=== PATIENT | male | born 1945 | race Caucasian/White ===

== ENCOUNTER 2016-10-20 14:39 | Emergency (ER) | payer MEDICARE ==
[~2016-10-20] VITALS: Ht 182.9 cm; Wt 90.7 kg
[2016-10-20] MEDS ORDERED: TdaP Vaccine 0.5ml Syr IM ONE (15:15)
[2016-10-20] MEDS ORDERED: IBUPROFEN600 MG ORAL (15:48)
[2016-10-20] MEDS ORDERED: AUGMENTIN 500-1 EACH ORAL (15:48)
[2016-10-20 16:05] VITALS: BP 129/78
--- NOTE | 2016-10-20 22:23 | Emergency Room Report ---
History of Present Illness General Chief Complaint: Animal Bite Source: Patient, Family Member (DANIELLE RODRIGUEZ) Present Illness HPI The patient is a 70-year-old male presenting for right thumb injury which occurred today after the patient's dog it bit him. The dog is up-to-date with immunizations. The patient noticed pain and bleeding to the area. Patient washed out the wound with soap and water. Patient states he is experiencing a 6 /10 pain to the area which is described as a dull ache. Pain worse with touch. Patient denies any numbness or tingling. The patient denies any other injury or any other symptoms including nausea, vomiting, fever, chills, rash The patient is unsure of last tetanus shot (DANIELLE RODRIGUEZ) Allergies: Coded Allergies: No Known Allergies (Unverified , 10/20/16) Patient History Past Medical History: see triage record Pertinent Family History: none Reviewed Nursing Documentation: PMH: Agreed, PSxH: Agreed (DANIELLE RODRIGUEZ) Nursing Documentation-PMH Past Medical History: No History, Except For Hx Neurological Problems: Yes - alzheimers, (DANIELLE RODRIGUEZ) Review of Systems All Other Systems: negative except mentioned in HPI (DANIELLE RODRIGUEZ) Physical Exam Vital Signs Date Time Temp Pulse Resp B/P Pulse Ox O2 Delivery O2 Flow Rate FiO2 10/20/16 14:47 98.2 96 18 109/69 98 Room Air Sp02 EP Interpretation: reviewed, normal General Appearance: no apparent distress, alert, GCS 15, non-toxic Head: normocephalic, atraumatic Eyes: bilateral eye PERRL, bilateral eye normal inspection ENT: hearing grossly normal, normal pharynx, no angioedema, normal voice Musculoskeletal: back normal, gait/station normal, normal range of motion, tender - Tender to palpation over the base of the right first thumb Neurologic: alert, responsive, sensory intact Psychiatric: other - dementia Skin: no rash, other - There are several small puncture wounds of the right first proximal thumb and first web space. No active bleeding. Lymphatic: no adenopathy (DANIELLE RODRIGUEZ) Medical Decision Making PA Attestation Dr. Haines is my supervising physician. Patient management was discussed with my supervising physician (DANIELLE RODRIGUEZ) Medicare Attestation The history of Eladio Brar has been reviewed and management options for him have been examined and discussed by Nura Haines. I have personally examined and interviewed the patient. (NURA HAINES M.D.) Diagnostic Impression: Primary Impression: Dog bite ER Course The patient is a 70-year-old male presenting for right thumb injury which occurred today after the patient's dog it bit him Ddx considered include but not limited to puncture wound, wound infection, fracture, tendon/ligament injury, avulsion, nerve damage PE: vitals WNL. NAD There are several small puncture wounds of the right first proximal thumb and first web space. No active bleeding. Full AROM. SILT. No edema. The patient is given a tetanus shot Wound is copiously irrigated with normal saline and Betadine. The patient is discharged home with a prescription for Augmentin and will followup with PMD. ER precautions are given (DANIELLE RODRIGUEZ) Last Vital Signs Date Time Temp Pulse Resp B/P Pulse Ox O2 Delivery O2 Flow Rate FiO2 10/20/16 16:05 54 18 129/78 98 Room Air 10/20/16 16:05 98.6 Status: improved (DANIELLE RODRIGUEZ) Disposition: HOME, SELF-CARE Condition: Improved Scripts Amoxicillin/Potassium Clav 500-125 Tablet* (AUGMENTIN 500-125 TABLET*) 1 Each Tablet 1 TAB ORAL THREE TIMES A DAY, #15 TAB Prov: DANIELLE RODRIGUEZ.AFred 10/20/16 Ibuprofen* (MOTRIN*) 600 Mg Tablet 600 MG ORAL Q8H Y for For Pain, #30 TAB 0 Refills Prov: DANIELLE RODRIGUEZ P.A. 10/20/16 Referrals: NON PHYSICIAN (PCP) Patient Instructions: Animal Bite Additional Instructions: I discussed my findings with the patient. All questions and concerns have been answered. Treatment and medication compliance have been addressed. I advised the patient that they need to follow up with PMD in 3-5 days. Return to ED if pain remains or worsens, numbness or tingling occurs, new rash is noticed, fever is noticed, or if needed for any reason. Patient verbalized understanding of discharge instructions. DANIELLE RODRIGUEZ 20, 2017 22:23 NURA HAINES M.D. Oct 23, 2016 06:32
== END 2016-10-20 16:05 | disposition home or self-care (01) ==
LOC: EMR 15:22
DX: S61.051A Open bite of right thumb without damage to nail, initial encounter (principal); W54.0XXA Bitten by dog, initial encounter; Y93.9 Activity, unspecified; Y92.9 Unspecified place or not applicable; Z23 Encounter for immunization; G30.9 Alzheimer's disease, unspecified; F02.80 Dementia in other diseases classified elsewhere, unspecified severity, without behavioral disturbance, psychotic disturbance, mood disturbance, and anxiety
CPT/HCPCS: 90471; 90715; 99284

== ENCOUNTER 2017-08-15 17:33 | Inpatient (IN) | payer MEDICARE ==
[~2017-08-15] VITALS: Ht 182.9 cm; Wt 88.5 kg
[~2017-08-15 17:33] MED LIST: AUGMENTIN 500-1 EACH ORAL; IBUPROFEN600 MG ORAL
--- NOTE | 2017-08-15 17:47 | Emergency Room Report ---
History of Present Illness General Chief Complaint: Fever Source: Medical Record, EMS Present Illness HPI 71-year-old male, history of dementia, presenting with fever. Patient is poor historian and has dementia, EMS states that patient is a [id number], was found to be febrile today. His normal mental status is reportedly oriented to person only. Patient is also wanderer. Currently he is awake, oriented to person, not providing any history. Denies any pain. No other history able to be obtained Allergies: Coded Allergies: No Known Allergies (Unverified , 10/20/16) Patient History Past Medical History: see triage record Past Surgical History: none Pertinent Family History: none Reviewed Nursing Documentation: PMH: Agreed, PSxH: Agreed Nursing Documentation-PMH Hx Neurological Problems: Yes - alzheimers, Review of Systems All Other Systems: limited - dementia Physical Exam Vital Signs Date Time Temp Pulse Resp B/P (MAP) Pulse Ox O2 Delivery O2 Flow Rate FiO2 08/15/17 17:16 97.9 108 16 111/69 98 Room Air Sp02 EP Interpretation: reviewed, normal General Appearance: other - confused, but nad, Chronically Ill Head: normocephalic, atraumatic Eyes: bilateral eye normal inspection, bilateral eye PERRL, bilateral eye EOMI ENT: normal ENT inspection, normal pharynx, normal voice, moist mucus membranes Neck: normal inspection, full range of motion, supple Respiratory: normal inspection, lungs clear, normal breath sounds, no respiratory distress, no retraction, no wheezing, speaking full sentences, chest symmetrical Cardiovascular #1: normal capillary refill, tachycardia, edema Cardiovascular #2: 2+ radial (R), 2+ radial (L) Gastrointestinal: normal inspection, non tender, soft, non-distended, no guarding Genitourinary: no CVA tenderness Musculoskeletal: normal inspection, back normal, normal range of motion, non- tender Neurologic: alert, responsive, motor strength/tone normal, sensory intact, speech normal, other - +aox1 only Skin: normal inspection, normal color, no rash, warm/dry, well hydrated, normal turgor Procedures Critical Care Time Critical Care Time 40 minutes of CC time 71-year-old male, fever, sepsis VS: Tachycardic, febrile Airway patent. Not hypoxic. PLAN: IV access, labs, lactate, troponin, Blood/Urine Cx, Abx, IVF Anticipate admission to Tele vs. [facility] CC time also includes review of labs, review of EMR, discussion with family and paperwork from SNF, d/w hospitalist CC could include dosing of pressors, additional Abx CC time does not include procedures Medical Decision Making Diagnostic Impression: Primary Impression: Lobar pneumonia Additional Impressions: Sepsis Hyponatremia ER Course 71-year-old male, dementia, presenting with fever DDX: UTI, PNA, bacteremia, will also consider intra-abdominal pathology such as colitis / diverticulitis / acalculous cholecystitis if no other course found but at this time abdomen soft, NT, ND. Plan: Obtain labs including cbc, bmp, blood culture, blood gas, lactate, ua, ucx CXR EKG ER course: Patient's BP has remained stable with MAP > 65 Given Tylenol [place] for fever Remains altered, came to see patient and states that this is his baseline White count 25 Lobar pneumonia noted Treated with vanco and cefepime Sepsis Re-examination Time: 7 PM VS: Temp 98 HR 101 BP 117/66 RR 18 CVS: RRR Respiratory: Lungs clear bilaterally Peripheral pulses: 2+ radial Capillary refill: <2 seconds Skin exam: warm, dry, no rash, not mottled Disposition: Patient will admitted to tele Patient requires close monitoring of respiratory/hemodynamic status and continuation of IV antibiotics. D/W Hospitalist Dr Bernabe who has accepted pt for admission Please note that this Emergency Department Report was dictated using [employer] software, occasionally this can lead to erroneous entry secondary to interpretation by the dictation equipment. EKG Diagnostic Results EP Interpretation: Yes Rate: tachy Rhythm: NSR ST Segments: No acute changes ASA given to patient: No Rhythm Strip EP Interpretation: Yes Rate: 100 Rhythm: NSR, no PVCs, no ectopy Chest X-ray CXR: Ordered: Yes 1 view Indication: Chest pain EP interpretation: Yes Interpretation: L lobar PNA Impression: L LOBAR PNA Electronically signed by Frank Munroe MD Laboratory Tests Test 08/15/17 18:10 08/15/17 19:17 White Blood Count 25.6 K/UL (4.8-10.8) *H Red Blood Count 4.23 M/UL (4.70-6.10) L Hemoglobin 12.6 G/DL (14.2-18.0) L Hematocrit 39.9 % (42.0-52.0) L Mean Corpuscular Volume 94 FL (80-99) Mean Corpuscular Hemoglobin 29.8 PG (27.0-31.0) Mean Corpuscular Hemoglobin Concent 31.7 G/DL (32.0-36.0) L Red Cell Distribution Width 12.7 % (11.6-14.8) Platelet Count 280 K/UL (150-450) Mean Platelet Volume 7.8 FL (6.5-10.1) Neutrophils (%) (Auto) % (45.0-75.0) Lymphocytes (%) (Auto) % (20.0-45.0) Monocytes (%) (Auto) % (1.0-10.0) Eosinophils (%) (Auto) % (0.0-3.0) Basophils (%) (Auto) % (0.0-2.0) Neutrophils % (Manual) Pending Lymphocytes % (Manual) Pending Platelet Estimate Pending Platelet Morphology Pending Sodium Level 129 MMOL/L (136-145) L Potassium Level 4.0 MMOL/L (3.5-5.1) Chloride Level 93 MMOL/L (98-107) L Carbon Dioxide Level 27 MMOL/L (21-32) Anion Gap 10 mmol/L (5-15) Blood Urea Nitrogen 23 mg/dL (7-18) H Creatinine 1.1 MG/DL (0.55-1.30) Estimate Glomerular Filtration Rate mL/min (>60) Glucose Level 126 MG/DL (74-106) H Lactic Acid Level 2.20 mmol/L (0.66-2.22) Calcium Level 9.3 MG/DL (8.5-10.1) Total Bilirubin 1.3 MG/DL (0.2-1.0) H Direct Bilirubin 0.5 MG/DL (0.0-0.3) H Aspartate Amino Transferase (AST) 16 U/L (15-37) Alanine Aminotransferase (ALT) 17 U/L (12-78) Alkaline Phosphatase 104 U/L (46-116) Troponin I 0.000 ng/mL (0.000-0.056) Pro-B-Type Natriuretic Peptide 627 pg/mL (0-125) H Total Protein 7.7 G/DL (6.4-8.2) Albumin 2.9 G/DL (3.4-5.0) L Globulin 4.8 g/dL Albumin/Globulin Ratio 0.6 (1.0-2.7) L Urine Color [place] Urine Appearance Clear Urine pH 6 (4.5-8.0) Urine Specific [place] 1.010 (1.005-1.035) Urine Protein 3+ (NEGATIVE) H Urine Glucose (UA) Negative (NEGATIVE) Urine Ketones Negative (NEGATIVE) Urine Occult Blood 3+ (NEGATIVE) H Urine Nitrite Negative (NEGATIVE) Urine Bilirubin 1+ (NEGATIVE) H Urine Ictotest Negative Urine Urobilinogen 12 MG/DL (0.0-1.0) H Urine Leukocyte Esterase 1+ (NEGATIVE) H Urine RBC 2-4 /HPF (0 - 0) H Urine WBC 0-2 /HPF (0 - 0) Urine Squamous Epithelial Cells None /LPF (NONE/OCC) Urine Bacteria Moderate /HPF (NONE) H Last Vital Signs Date Time Temp Pulse Resp B/P (MAP) Pulse Ox O2 Delivery O2 Flow Rate FiO2 08/15/17 17:16 97.9 108 16 111/69 98 Room Air Disposition: ADMITTED INPATIENT Condition: Serious Frank Munroe M.D. Aug 15, 2017 17:47
[2017-08-15 18:00] VITALS: BP 117/66
[2017-08-15] MEDS ORDERED: Acetaminophen 650 MG SUPP RECTAL ONE (18:30)
[2017-08-15 18:44] LABS: HEMATOCRIT 39.9 % (42.0-52.0); HEMOGLOBIN 12.6 G/DL (14.2-18.0); MEAN CORPUSCULAR VOLUME 94 FL (80-99); PLATELET COUNT 280 K/UL (150-450); RED BLOOD COUNT 4.23 M/UL (4.70-6.10); RED CELL DISTRIBUTION WIDTH 12.7 % (11.6-14.8)
[2017-08-15 18:47] LABS: WHITE BLOOD COUNT 25.6 K/UL (4.8-10.8)
[2017-08-15] MEDS ORDERED: Vancomycin 1.5gm/D5W 250ml 250 ML IVPB ONE (19:00)
[2017-08-15] MEDS ORDERED: Cefepime HCl 1 GM in NS 55 ML IV ONE (19:00)
[2017-08-15 19:02] LABS: ANION GAP 10 mmol/L (5-15); BLOOD UREA NITROGEN 23 mg/dL (7-18); CALCIUM 9.3 MG/DL (8.5-10.1); CARBON DIOXIDE 27 MMOL/L (21-32); CHLORIDE 93 MMOL/L (98-107); CREATININE 1.1 MG/DL (0.55-1.30); SODIUM 129 MMOL/L (136-145)
[2017-08-15] MEDS ORDERED: Cefepime 1gm vial ONE (19:07)
[2017-08-15 19:15] LABS: ALANINE AMINOTRANSFERASE 17 U/L (12-78); ALBUMIN 2.9 G/DL (3.4-5.0); ALBUMIN/GLOBULIN RATIO 0.6 (1.0-2.7); ALKALINE PHOSPHATASE 104 U/L (46-116); ASPARTATE AMINO TRANSFERASE 16 U/L (15-37); BILIRUBIN,TOTAL 1.3 MG/DL (0.2-1.0)
[2017-08-15 19:17] LABS: BILIRUBIN,DIRECT 0.5 MG/DL (0.0-0.3)
[2017-08-15 19:49] LABS: APPEARANCE,URINE CLEAR; BILIRUBIN, URINE 1+ (NEGATIVE); GLUCOSE, URINE (UA) NEGATIVE (NEGATIVE); KETONES,URINE NEGATIVE (NEGATIVE); LEUKOCYTE ESTERASE ,URINE 1+ (NEGATIVE); NITRITE,URINE NEGATIVE (NEGATIVE); PH,URINE 6 (4.5-8.0); PROTEIN,URINE 3+ (NEGATIVE); UROBILINOGEN,URINE 12 MG/DL (0.0-1.0)
[2017-08-15 19:50] LABS: COLOR,URINE AMBER
[2017-08-15 19:54] VITALS: BP 93/60
[2017-08-15 23:16] VITALS: BP 92/74
[2017-08-16] VITALS (7 sets, daily range): BP systolic 95–130; BP diastolic 53–77
[2017-08-16] MEDS ORDERED: DONEPEZIL HCL10 M2 ORAL (00:19)
[2017-08-16] MEDS ORDERED: VITAMIN B122500 MCG PO (00:19)
[2017-08-16] MEDS ORDERED: FOLIC ACID1 MG ORAL (00:19)
[2017-08-16] MEDS ORDERED: FISH OIL CAP1000 MG ORAL (00:19)
[2017-08-16] MEDS ORDERED: LEVOTHYROXINE50 MCG ORAL (00:19)
[2017-08-16] MEDS ORDERED: VITAMIN B-1100 MG ORAL (00:19)
[2017-08-16] MEDS ORDERED: RISPERDAL0.25 MG ORAL (00:19)
[2017-08-16] MEDS ORDERED: CITALOPRAM HBR20 M1 ORAL (00:19)
[2017-08-16] MEDS ORDERED: NASALCROM26 ML NS (00:19)
[2017-08-16] MEDS ORDERED: L-CARNITINE250 MG PO (00:19)
[2017-08-16] MEDS ORDERED: CRESTOR10 M2 ORAL (00:19)
[2017-08-16] MEDS ORDERED: TAMSULOSIN HCL0.4 MG ORAL (00:19)
[2017-08-16] MEDS ORDERED: COENZYME Q-10200 MG PO (00:19)
--- NOTE | 2017-08-16 03:49 | Geriatric Progress Note ---
Subjective Interval Events Developed high fever, weakness at [facility]. Seen in ED at ~19:00, 08/15/17. Noted elevated wbc, borderline lactate, low Na. No overt source, but CXR reported with probable pneumonia. Given fluid bolus, cefepime, vanco. Admitted for further evaluation and treatment. PMH: Depression, Dementia. Dictated #[id number] Geriatric Geriatric Last 24 Hour Vital Signs Date Time Temp Pulse Resp B/P (MAP) Pulse Ox O2 Delivery O2 Flow Rate FiO2 08/16/17 01:24 96 08/16/17 01:24 99.3 94 95/57 95 Room Air 08/15/17 23:16 99.1 92 24 92/74 99 Nasal Cannula 2.0 08/15/17 19:54 100 31 93/60 93 Room Air 08/15/17 19:40 100.9 08/15/17 18:00 103.8 102 18 117/66 96 Room Air 08/15/17 17:16 97.9 108 16 111/69 98 Room Air Intake and Output 08/15/17 08/16/17 19:00 07:00 Intake Total 0 ml Output Total 200 ml Balance -200 ml Intake Oral 0 ml Output Urine Total 200 ml Laboratory Tests Test 08/15/17 18:10 08/15/17 19:17 08/15/17 23:28 White Blood Count 25.6 K/UL (4.8-10.8) *H Red Blood Count 4.23 M/UL (4.70-6.10) L Hemoglobin 12.6 G/DL (14.2-18.0) L Hematocrit 39.9 % (42.0-52.0) L Mean Corpuscular Volume 94 FL (80-99) Mean Corpuscular Hemoglobin 29.8 PG (27.0-31.0) Mean Corpuscular Hemoglobin Concent 31.7 G/DL (32.0-36.0) L Red Cell Distribution Width 12.7 % (11.6-14.8) Platelet Count 280 K/UL (150-450) Mean Platelet Volume 7.8 FL (6.5-10.1) Neutrophils (%) (Auto) % (45.0-75.0) Lymphocytes (%) (Auto) % (20.0-45.0) Monocytes (%) (Auto) % (1.0-10.0) Eosinophils (%) (Auto) % (0.0-3.0) Basophils (%) (Auto) % (0.0-2.0) Differential Total Cells Counted 100 Neutrophils % (Manual) 95 % (45-75) H Lymphocytes % (Manual) 1 % (20-45) L Monocytes % (Manual) 4 % (1-10) Eosinophils % (Manual) 0 % (0-3) Basophils % (Manual) 0 % (0-2) Band Neutrophils 0 % (0-8) Platelet Estimate Adequate Platelet Morphology Normal Red Blood Cell Morphology Normal Sodium Level 129 MMOL/L (136-145) L Potassium Level 4.0 MMOL/L (3.5-5.1) Chloride Level 93 MMOL/L (98-107) L Carbon Dioxide Level 27 MMOL/L (21-32) Anion Gap 10 mmol/L (5-15) Blood Urea Nitrogen 23 mg/dL (7-18) H Creatinine 1.1 MG/DL (0.55-1.30) Estimat Glomerular Filtration Rate mL/min (>60) Glucose Level 126 MG/DL (74-106) H Lactic Acid Level 2.20 mmol/L (0.66-2.22) 0.80 mmol/L (0.66-2.22) Calcium Level 9.3 MG/DL (8.5-10.1) Total Bilirubin 1.3 MG/DL (0.2-1.0) H Direct Bilirubin 0.5 MG/DL (0.0-0.3) H Aspartate Amino Transf (AST/SGOT) 16 U/L (15-37) Alanine Aminotransferase (ALT/SGPT) 17 U/L (12-78) Alkaline Phosphatase 104 U/L (46-116) Troponin I 0.000 ng/mL (0.000-0.056) Pro-B-Type Natriuretic Peptide 627 pg/mL (0-125) H Total Protein 7.7 G/DL (6.4-8.2) Albumin 2.9 G/DL (3.4-5.0) L Globulin 4.8 g/dL Albumin/Globulin Ratio 0.6 (1.0-2.7) L Urine Color Kayley Urine Appearance Clear Urine pH 6 (4.5-8.0) Urine Specific [place] 1.010 (1.005-1.035) Urine Protein 3+ (NEGATIVE) H Urine Glucose (UA) Negative (NEGATIVE) Urine Ketones Negative (NEGATIVE) Urine Occult Blood 3+ (NEGATIVE) H Urine Nitrite Negative (NEGATIVE) Urine Bilirubin 1+ (NEGATIVE) H Urine Ictotest Negative Urine Urobilinogen 12 MG/DL (0.0-1.0) H Urine Leukocyte Esterase 1+ (NEGATIVE) H Urine RBC 2-4 /HPF (0 - 0) H Urine WBC 0-2 /HPF (0 - 0) Urine Squamous Epithelial Cells None /LPF (NONE/OCC) Urine Bacteria Moderate /HPF (NONE) H Current Medications Medications (Trade) Dose Ordered Sig/Enoc Route PRN Reason Start Time Stop Time Status Last Admin Dose Admin Acetaminophen (Tylenol) 650 mg Q6H PRN ORAL Mild Pain/Temp > 100.5 08/16/17 02:00 09/15/17 01:59 Albuterol/ Ipratropium (Albuterol/ Ipratropium) 3 ml QIDRT HHN 08/16/17 07:00 08/21/17 06:59 Cefepime HCl 2 gm/ Dextrose 55 ml @ 110 mls/hr Q8HR IVPB 08/16/17 06:00 08/23/17 05:59 Citalopram Hydrobromide (celeXA) 20 mg DAILY ORAL 08/16/17 09:00 09/15/17 08:59 Levothyroxine Sodium (Synthroid) 50 mcg DAILY@0630 ORAL 08/16/17 06:30 09/15/17 06:29 Risperidone (RisperDAL) 0.25 mg BID ORAL 08/16/17 09:00 09/15/17 08:59 Sodium Chloride 1,000 ml @ 75 mls/hr [id number] IV 08/16/17 02:00 09/15/17 01:59 Tamsulosin HCl (Flomax) 0.4 mg BEDTIME ORAL 08/16/17 21:00 09/15/17 20:59 Vancomycin HCl (Vanco rx to dose) 1 ea DAILY PRN MISC Per rx protocol 08/16/17 02:00 09/15/17 01:59 Vancomycin HCl/ Dextrose 250 ml @ 166.667 mls/hr Q12H IVPB 08/16/17 10:00 1/19/18 09:59 Height (Feet): 6 Height (Inches): 0.00 Weight (Pounds): 195 MARRY CASH Aug 16, 2017 03:49
[2017-08-16] MEDS ORDERED: Cefepime 2gm ONE (05:18)
[2017-08-16] MEDS: Cefepime HCl 2 GM in D5W 55 ML IVPB SCH ×3 (06:05→21:29)
[2017-08-16] MEDS: Albuterol/Ipratropium 3ml neb HHN SCH ×4 (07:32→19:13)
[2017-08-16 08:33] LABS: HEMATOCRIT 31.8 % (42.0-52.0); HEMOGLOBIN 11.5 G/DL (14.2-18.0); MEAN CORPUSCULAR VOLUME 92 FL (80-99); PLATELET COUNT 271 K/UL (150-450); RED BLOOD COUNT 3.45 M/UL (4.70-6.10); RED CELL DISTRIBUTION WIDTH 12.6 % (11.6-14.8)
[2017-08-16 08:39] LABS: WHITE BLOOD COUNT 25.7 K/UL (4.8-10.8)
[2017-08-16 08:55] LABS: ANION GAP 9 mmol/L (5-15); BLOOD UREA NITROGEN 17 mg/dL (7-18); CALCIUM 8.4 MG/DL (8.5-10.1); CARBON DIOXIDE 23 MMOL/L (21-32); CHLORIDE 99 MMOL/L (98-107); CREATINE KINASE 46 U/L (26-308); CREATININE 0.9 MG/DL (0.55-1.30); POTASSIUM 3.8 MMOL/L (3.5-5.1); SODIUM 131 MMOL/L (136-145)
[2017-08-16] MEDS: Citalopram Hydrobromide 10mg Tab ORAL SCH (09:03)
[2017-08-16] MEDS: Vancomycin 1250mg/D5W 250ml IVPB SCH ×2 (09:49→22:25)
--- NOTE | 2017-08-16 10:35 | Diagnostic Imaging Report ---
Indication: Pain. Fever Technique: XRAY Chest 1v Comparison: None Findings: Heart size and mediastinal contours are within normal limits given technique. There is opacity in the right mid/upper lung suggestion of air bronchograms. There is no pleural effusion. No pneumothorax. Left lung is clear. No acute osseous abnormality seen Impression: Focal opacity in the right midlung most likely representing a pneumonia given history of fever. Radiographic follow-up to resolution recommended. Finding of pneumonia corresponds with the preliminary interpretation of the treating ER clinician as documented in the electronic medical record. Study was obtained via the emergency department however patient admitted to the hospital at time of dictation of the final report.
[2017-08-16] MEDS ORDERED: Tubing IV Secondary IV ONE (16:01)
[2017-08-16] MEDS ORDERED: NS 500ML ONE (16:01)
--- NOTE | 2017-08-16 19:38 | Geriatric Progress Note ---
Assessment/Plan Problems: (1) Semantic dementia with behavioral disturbance (2) Delirium due to another medical condition, acute, mixed level of activity (3) Dyslipidemia (4) Prostatism (5) Lobar pneumonia (6) Hyponatremia (7) Sepsis (8) Altered mental status Assessment/Plan Generally improved. Hopefully wbc will begin to respond to antibiotics, hydration, bronchodilators. Lack of distress would make CPT not currently indicated. Will dry adding Rozerem to diminish delirium. Make Risperdal available but minimize. Discussed both outgoing and incoming shifts. Mobilize during day as tolerated. Discussed with: family, hospital staff Subjective Interval Events Patient more alert. Remains non-verbal which is consistent with his baseline recently. Does not appear in distress. Has occasional brief cough, non- productive. No obviously congested. Wbc remains about the same. CXR reviewed, obvious dense lobar infiltrate, RUL. No fever. At times has wandered, but staff has been been able to redirect without giving the additional dose of Risperdal ordered. A sitter has also been requested. Discussed with by phone in detail. Based on his AHCD and her interpretation, patient will be DNR/DNI, but will receive conservative active tx. She plans to move him to a different [facility], where she can also live on the grounds, and hopefully allow some quality of life in the future. Staff reports patient ate, but is requiring a feeder, and did not exhibit any signs of dysphagia. Subjective Patient aphasic due to semantic dementia. Geriatric Geriatric Last 24 Hour Vital Signs Date Time Temp Pulse Resp B/P (MAP) Pulse Ox O2 Delivery O2 Flow Rate FiO2 08/16/17 16:00 97.3 94 20 130/77 92 Room Air 08/16/17 16:00 95 08/16/17 15:07 92 18 96 Room Air 08/16/17 14:57 92 18 96 Room Air 08/16/17 12:00 93 08/16/17 11:24 97.9 87 20 101/53 100 Room Air 08/16/17 11:17 84 20 98 Room Air 08/16/17 11:07 84 18 92 Room Air 08/16/17 09:18 08/16/17 08:00 84 08/16/17 08:00 98.7 87 20 105/57 92 Room Air 08/16/17 07:42 86 18 96 Room Air 08/16/17 07:32 85 18 91 Room Air 08/16/17 07:31 85 18 Room Air 08/16/17 07:14 98.7 08/16/17 06:12 101.7 93 24 113/66 95 Room Air 08/16/17 04:00 90 08/16/17 01:24 96 08/16/17 01:24 99.3 94 95/57 95 Room Air 08/16/17 01:00 99.1 92 24 92/74 99 Nasal Cannula 2.0 08/15/17 23:16 99.1 92 24 92/74 99 Nasal Cannula 2.0 08/15/17 19:54 100 31 93/60 93 Room Air 08/15/17 19:40 100.9 Intake and Output 08/15/17 08/16/17 19:00 07:00 Intake Total 250 ml Output Total 200 ml Balance 50 ml Intake Oral 250 ml Output Urine Total 200 ml # Voids 2 Laboratory Tests Test 08/15/17 19:17 08/15/17 23:28 08/16/17 07:00 Urine Color Kayley Urine Appearance Clear Urine pH 6 (4.5-8.0) Urine Specific [place] 1.010 (1.005-1.035) Urine Protein 3+ (NEGATIVE) H Urine Glucose (UA) Negative (NEGATIVE) Urine Ketones Negative (NEGATIVE) Urine Occult Blood 3+ (NEGATIVE) H Urine Nitrite Negative (NEGATIVE) Urine Bilirubin 1+ (NEGATIVE) H Urine Ictotest Negative Urine Urobilinogen 12 MG/DL (0.0-1.0) H Urine Leukocyte Esterase 1+ (NEGATIVE) H Urine RBC 2-4 /HPF (0 - 0) H Urine WBC 0-2 /HPF (0 - 0) Urine Squamous Epithelial Cells None /LPF (NONE/OCC) Urine Bacteria Moderate /HPF (NONE) H Lactic Acid Level 0.80 mmol/L (0.66-2.22) White Blood Count 25.7 K/UL (4.8-10.8) *H Red Blood Count 3.45 M/UL (4.70-6.10) L Hemoglobin 11.5 G/DL (14.2-18.0) L Hematocrit 31.8 % (42.0-52.0) L Mean Corpuscular Volume 92 FL (80-99) Mean Corpuscular Hemoglobin 33.2 PG (27.0-31.0) H Mean Corpuscular Hemoglobin Concent 36.1 G/DL (32.0-36.0) H Red Cell Distribution Width 12.6 % (11.6-14.8) Platelet Count 271 K/UL (150-450) Mean Platelet Volume 7.9 FL (6.5-10.1) Neutrophils (%) (Auto) % (45.0-75.0) Lymphocytes (%) (Auto) % (20.0-45.0) Monocytes (%) (Auto) % (1.0-10.0) Eosinophils (%) (Auto) % (0.0-3.0) Basophils (%) (Auto) % (0.0-2.0) Differential Total Cells Counted 100 Neutrophils % (Manual) 87 % (45-75) H Lymphocytes % (Manual) 2 % (20-45) L Monocytes % (Manual) 6 % (1-10) Eosinophils % (Manual) 0 % (0-3) Basophils % (Manual) 0 % (0-2) Band Neutrophils 5 % (0-8) Platelet Estimate Adequate Platelet Morphology Normal Red Blood Cell Morphology Normal Erythrocyte Sedimentation Rate 97 MM/HR (0-20) H Sodium Level 131 MMOL/L (136-145) L Potassium Level 3.8 MMOL/L (3.5-5.1) Chloride Level 99 MMOL/L (98-107) Carbon Dioxide Level 23 MMOL/L (21-32) Anion Gap 9 mmol/L (5-15) Blood Urea Nitrogen 17 mg/dL (7-18) Creatinine 0.9 MG/DL (0.55-1.30) Estimat Glomerular Filtration Rate mL/min (>60) Glucose Level 109 MG/DL (74-106) H Calcium Level 8.4 MG/DL (8.5-10.1) L Total Creatine Kinase 46 U/L (26-308) Current Medications Medications (Trade) Dose Ordered Sig/Enoc Route PRN Reason Start Time Stop Time Status Last Admin Dose Admin Acetaminophen (Tylenol) 650 mg Q6H PRN ORAL Mild Pain/Temp > 100.5 08/16/17 02:00 09/15/17 01:59 08/16/17 06:15 Albuterol/ Ipratropium (Albuterol/ Ipratropium) 3 ml QIDRT HHN 08/16/17 07:00 08/21/17 06:59 08/16/17 14:57 Cefepime HCl 2 gm/ Dextrose 55 ml @ 110 mls/hr Q8HR IVPB 08/16/17 06:00 08/23/17 05:59 08/16/17 14:39 Citalopram Hydrobromide (celeXA) 20 mg DAILY ORAL 08/16/17 09:00 09/15/17 08:59 08/16/17 09:03 Levothyroxine Sodium (Synthroid) 50 mcg DAILY@0630 ORAL 08/16/17 06:30 09/15/17 06:29 08/16/17 06:05 Risperidone (RisperDAL) 0.25 mg BID ORAL 08/16/17 09:00 09/15/17 08:59 08/16/17 17:18 Sodium Chloride 1,000 ml @ 75 mls/hr [id number] IV 08/16/17 02:00 09/15/17 01:59 08/16/17 14:39 Tamsulosin HCl (Flomax) 0.4 mg BEDTIME ORAL 08/16/17 21:00 09/15/17 20:59 Vancomycin HCl (Vanco rx to dose) 1 ea DAILY PRN MISC Per rx protocol 08/16/17 02:00 09/15/17 01:59 Vancomycin HCl/ Dextrose 250 ml @ 166.667 mls/hr Q12H IVPB 08/16/17 10:00 08/21/17 09:59 08/16/17 09:49 Height (Feet): 6 Height (Inches): 0.00 Weight (Pounds): 195 General Appearance: alert Head: normocephalic, atraumatic Eyes: bilateral anicteric Neck: full range of motion, no mass Respiratory: rales - some anterior RU lung field Cardiovascular: regular rate, rhythm Gastrointestinal: normal bowel sounds, non tender, soft, no mass, no organomegaly, non-distended Musculoskeletal: no calf tenderness Edema: no edema noted Generalized Neurologic: no new focality MARRY CASH Aug 16, 2017 19:37
[2017-08-16] MEDS: Ramelteon 8mg tab (Approved for Delirium use only) ORAL SCH (21:27)
[2017-08-16] MEDS: Tamsulosin 0.4mg cap ORAL SCH (21:28)
[2017-08-17] VITALS: BP 102/57
[2017-08-17 04:09] VITALS: BP 97/60
[2017-08-17] MEDS: Cefepime HCl 2 GM in D5W 55 ML IVPB SCH ×2 (06:02→14:01)
[2017-08-17] MEDS: Albuterol/Ipratropium 3ml neb HHN SCH ×4 (07:43→19:49)
[2017-08-17 08:00] VITALS: BP 102/61
--- NOTE | 2017-08-17 08:00 | History and Physical Report ---
DATE OF ADMISSION: 08/15/2017 IDENTIFICATION DATA: The patient is a 71-year-old gentleman who developed a high fever of 103 and lethargy and weakness at his [facility]. 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 He was initially seen in the office on 03/29/2015 and at that time was aphasic and had not been able to read for a period of time. He had been seen by Dr. Waqar Ceja and thought to have dementia, possibly of the Alzheimer's type. There had been a presentation of depression approximately 15 years prior, felt to be associated with work stress. He had worked on [employer] for various large organizations and was thought to have obsessive-compulsive characteristics with resulting anxiety, depression, and anger. He was treated with Abilify for approximately 10 years and retired approximately 9 years ago, after he began displaying increasing symptoms including difficulty communicating with coworker's. He also was thought to be "absent minded". Since his initial presentation in the office, the patient has had gradual, but progressive decline in his functional status almost entirely associated with his cognitive problems. Late last year, the patient began to exhibit signs of wandering and [facility] his and was later found in [place]. His is affected with multiple sclerosis and therefore had difficulty containing the patient and several months ago, he was placed in [facility]. Because of episodic agitation there and attempt to leave the facility, temporizing doses of antipsychotics were used to moderate his behavior. The patient was last seen in the office on 07/23/2017, at which time he had begun to develop symptoms of weight loss and poor sleep. At that time, he had no evidence of bradykinesia or sedation, and his Romberg remained normal. His Risperdal was increased to 0.25 mg at each bedtime and subsequently because of persistent agitation was increased to 0.5 mg twice a day. The patient's past medical history, otherwise, has only been remarkable for apparent dyslipidemia and prostatism treated with tamsulosin. At the present time, information is not available as to how the patient was tolerating his increased dose of Risperdal, but apparently, the patient's behavior had settled down somewhat at the facility. Today, apparently, the patient spiked a fever to over 103 degrees and became weak and lethargic, and his requested facility to send him to the emergency room. In the emergency room, the patient was evaluated and found to have a markedly elevated white count of over 25,000 as well as a borderline elevated lactate level and evidence of hyponatremia. It was felt the patient would require admission to the hospital for further evaluation and treatment and the patient was seen in the emergency room. At that time, the patient was aphasic and unable to respond with any verbal responses, although he smiled at the examiner at times. He did not exhibit any gross discomfort and his initial evaluation failed to reveal specific locus for his leukocytosis. Subsequently, the report of the patient's chest x-ray has suggested right upper lobe pneumonitis, and therefore, this seems to be the most likely cause of the patient's leukocytosis and high fever. The patient is admitted for further evaluation and treatment. PAST MEDICAL HISTORY: Essentially as above. CURRENT MEDICATIONS: The patient's current medications have included citalopram 20 mg daily, NasalCrom spray 3 times a day, vitamin B12 1000 mcg daily, donepezil 10 mg at bedtime, fish oil 1000 mg daily, Folate 1 mg daily, ibuprofen 600 mg q.8 h. p.r.n., L-carnitine 250 mg daily, levothyroxine 50 mcg daily, Risperdal 0.5 mg b.i.d., Crestor 5 mg at bedtime, tamsulosin 0.4 mg at bedtime, thiamine 100 mg daily and Coenzyme Q10 100 mg daily. There is also a question whether the patient may be taking amoxicillin and clavulanate, and the indication is unclear. It appears possible that both the ibuprofen and the Augmentin may actually be artifactual associated with electronic medical record from a visit more than a year ago. It appears possible that both the Augmentin and the ibuprofen are actually artifactual associated with electronic health record and may represent an emergency room visit for a dog bite over 9 months ago. ALLERGIES: No known allergies. SOCIAL HISTORY: As described above. The patient had previously worked in [employer] on [address]. He is to his , who is limited functionally by her multiple sclerosis and he recently moved into the [facility] because of his cognitive behavioral changes. FAMILY HISTORY: Noncontributory. REVIEW OF SYSTEMS: The patient is unable to respond at the present time. PHYSICAL EXAMINATION: VITAL SIGNS: The patient's initial vital signs include a blood pressure of 117/66, heart rate of 102 and regular, respiratory rate of 18, temperature of 103.8 rectally, and room air saturation of 96%. GENERAL: The patient is a well-developed male, lying in bed with a somewhat inappropriate smile, not exhibiting any acute distress, at times keeping his eyes closed with no clear indication of respiratory difficulty. No audible congestion and no cough. HEAD AND NECK: Normocephalic, atraumatic skull. The sclerae appear anicteric. The neck reveals normal range of motion without obvious masses. CARDIAC: Regular rhythm. The breath sounds are unremarkable to auscultation. ABDOMEN: Normal bowel sounds. Soft and nontender without masses or organomegaly. No suprapubic tenderness is elicited. EXTREMITIES: No edema. No calf tenderness. Grossly, the patient move all extremities actively attempts at range of motion are frustrated by his inability to comply, but there is no clear indication of new focality. Given the patient's fever and acute process, an attempt was not made to ambulate the patient in the emergency room. LABORATORY DATA: The patient's white count is 25.6 with hematocrit of 39.9% MCV of 94, platelet count 280 with 95% neutrophils. Sodium is 129, potassium 4.0, chloride 93, bicarbonate 27, BUN 23, creatinine 1.1, glucose 126, and calcium 9.3. Total bilirubin 1.3, direct bilirubin 0.5, AST 16, ALT 17, and alkaline phosphatase 107. Troponin is 0. ProBNP is 627. Albumin 2.9. Total protein 7.7. Initial urinalysis revealed specific gravity 1.010, 3+ protein, 3+ ketones, 1+ bilirubin, negative nitrites, 1+ leukocyte esterase, urobilinogen of 12, 2 to 4 RBCs, 0 to 2 WBCs, and mild bacteria. As stated above, the x-ray imaging was not immediately available, but subsequently the report reveals focal opacity in the right mid lung, most likely representing a pneumonia given history of fever. Radiologic followup recommended. The actual images have not been reviewed yet personally. IMPRESSION: The patient presents with a febrile episode and increase with weakness and lethargy as well as mild electrolyte abnormalities and borderline lactate, which are suggestive of a sepsis presentation associated with pneumonitis. The fact that the patient's physical examination is fairly unremarkable, is probably due to his overall excellent baseline condition and his inability to respond back to detailed history. Given the right upper lobe appearance of the x-rays, the possibility of aspiration pneumonia needs to considered as well, especially if the patient has been overly sedated on his psychoactive medications. This is not clear at the present time. For the time being, the patient will be continued on cefepime and vancomycin. He was initiated in the emergency room with antibiotic coverage. He has already, received 2 liters of fluids in the emergency room and additional fluid will be continued at the present time to improve his fluid resuscitation and correct his electrolyte abnormalities. Because of the possible oversedation, the patient's Risperdal dosing will be decreased to 0.25 mg twice a day and further titration will be depending on his response to therapy. Longer term, given the patient's overall cognitive presentation, he would probably benefit most from a limited access placement rather than high doses of psychoactive medications since he has been ambulatory and without evidence of neurologic deficits. In maintaining his cardiovascular condition, it will be helpful in terms of his overall prognosis. The patient is a Full Code at the present time until further discussions are held with the patient's . Additional interventions will be considered depending on the patient's initial response to therapy and further laboratory data. Bronchodilator therapy will also be utilized since the patient may require some assistance in mobilizing his secretions in order to clear the affected lung. The patient will be initially started on a mechanical soft diet since there is no clear indication at the present time of actual dysphagia, but obviously this will be titrated as well depending on the patient's ability to tolerate his diet. Vijay Bernabe M.D. DR: ALFRED JOB#: [id number] CC: SANDER
[2017-08-17 08:01] LABS: HEMATOCRIT 32.9 % (42.0-52.0); HEMOGLOBIN 11.4 G/DL (14.2-18.0); MEAN CORPUSCULAR VOLUME 93 FL (80-99); PLATELET COUNT 288 K/UL (150-450); RED BLOOD COUNT 3.55 M/UL (4.70-6.10); RED CELL DISTRIBUTION WIDTH 12.6 % (11.6-14.8)
[2017-08-17 08:05] LABS: ANION GAP 10 mmol/L (5-15); BLOOD UREA NITROGEN 14 mg/dL (7-18); CALCIUM 8.5 MG/DL (8.5-10.1); CARBON DIOXIDE 24 MMOL/L (21-32); CHLORIDE 102 MMOL/L (98-107); CREATININE 0.9 MG/DL (0.55-1.30); POTASSIUM 3.5 MMOL/L (3.5-5.1); SODIUM 136 MMOL/L (136-145)
[2017-08-17] MEDS: Citalopram Hydrobromide 10mg Tab ORAL SCH (08:16)
[2017-08-17] MEDS: Vancomycin 1250mg/D5W 250ml IVPB SCH (10:09)
[2017-08-17 12:00] VITALS: BP 102/64
[2017-08-17 16:00] VITALS: BP 97/50
--- NOTE | 2017-08-17 17:51 | Geriatric Progress Note ---
Assessment/Plan Problems: (1) Semantic dementia with behavioral disturbance (2) Delirium due to another medical condition, acute, mixed level of activity (3) Dyslipidemia (4) Prostatism (5) Lobar pneumonia (6) Hyponatremia (7) Sepsis (8) Altered mental status Assessment/Plan Appears to be improving, but with significant RUL changes and persistent leukocytosis, will ask I.D. to see. Repeat CXR. Otherwise continue present approach. Discussed with: hospital staff Subjective Interval Events Patient more alert and responsive than before. Behavior generally manageable. No overt distress. Wbc remains the same. Apparently intake variable. Subjective Patient aphasic due to semantic dementia. Geriatric Geriatric Last 24 Hour Vital Signs Date Time Temp Pulse Resp B/P (MAP) Pulse Ox O2 Delivery O2 Flow Rate FiO2 08/17/17 16:00 98.2 87 16 97/50 98 Room Air 08/17/17 15:03 88 20 97 Room Air 21 08/17/17 14:52 86 18 90 Room Air 21 08/17/17 12:00 84 08/17/17 12:00 97.9 68 18 102/64 96 Room Air 08/17/17 11:01 83 18 98 Room Air 21 08/17/17 10:50 83 20 93 Room Air 21 08/17/17 08:00 97.2 76 19 102/61 96 Room Air 08/17/17 08:00 77 08/17/17 07:45 93 Room Air 21 08/17/17 07:45 Room Air 21 08/17/17 04:09 98.7 79 20 97/60 94 Room Air 08/17/17 04:00 74 08/17/17 01:31 99.7 08/17/17 00:00 102.0 93 20 102/57 96 Room Air 08/17/17 00:00 92 08/16/17 20:00 98.1 105 20 107/64 97 Room Air 08/16/17 20:00 99 08/16/17 19:16 94 20 97 Room Air 21 08/16/17 19:14 90 20 95 Room Air 21 Intake and Output 08/16/17 08/17/17 19:00 07:00 Intake Total 100 ml 1368.334 ml Balance 100 ml 1368.334 ml Intake Oral 100 ml 220 ml IV Total 1148.334 ml # Voids 6 8 # Bowel Movements 1 Laboratory Tests Test 08/17/17 06:50 08/17/17 09:35 White Blood Count 26.0 K/UL (4.8-10.8) *H Red Blood Count 3.55 M/UL (4.70-6.10) L Hemoglobin 11.4 G/DL (14.2-18.0) L Hematocrit 32.9 % (42.0-52.0) L Mean Corpuscular Volume 93 FL (80-99) Mean Corpuscular Hemoglobin 32.2 PG (27.0-31.0) H Mean Corpuscular Hemoglobin Concent 34.7 G/DL (32.0-36.0) Red Cell Distribution Width 12.6 % (11.6-14.8) Platelet Count 288 K/UL (150-450) Mean Platelet Volume 7.5 FL (6.5-10.1) Neutrophils (%) (Auto) % (45.0-75.0) Lymphocytes (%) (Auto) % (20.0-45.0) Monocytes (%) (Auto) % (1.0-10.0) Eosinophils (%) (Auto) % (0.0-3.0) Basophils (%) (Auto) % (0.0-2.0) Differential Total Cells Counted 100 Neutrophils % (Manual) 87 % (45-75) H Lymphocytes % (Manual) 7 % (20-45) L Monocytes % (Manual) 6 % (1-10) Eosinophils % (Manual) 0 % (0-3) Basophils % (Manual) 0 % (0-2) Band Neutrophils 0 % (0-8) Platelet Estimate Adequate Platelet Morphology Normal Hypochromasia 1+ Sodium Level 136 MMOL/L (136-145) Potassium Level 3.5 MMOL/L (3.5-5.1) Chloride Level 102 MMOL/L (98-107) Carbon Dioxide Level 24 MMOL/L (21-32) Anion Gap 10 mmol/L (5-15) Blood Urea Nitrogen 14 mg/dL (7-18) Creatinine 0.9 MG/DL (0.55-1.30) Estimat Glomerular Filtration Rate mL/min (>60) Glucose Level 100 MG/DL (74-106) Calcium Level 8.5 MG/DL (8.5-10.1) Vancomycin Level Trough 9.6 ug/mL (5.0-12.0) Current Medications Medications (Trade) Dose Ordered Sig/Enoc Route PRN Reason Start Time Stop Time Status Last Admin Dose Admin Acetaminophen (Tylenol) 650 mg Q6H PRN ORAL Mild Pain/Temp > 100.5 08/16/17 02:00 09/15/17 01:59 08/17/17 00:32 Albuterol/ Ipratropium (Albuterol/ Ipratropium) 3 ml QIDRT HHN 08/16/17 07:00 08/21/17 06:59 08/17/17 14:52 Cefepime HCl 2 gm/ Dextrose 55 ml @ 110 mls/hr Q8HR IVPB 08/16/17 06:00 08/23/17 05:59 08/17/17 14:01 Citalopram Hydrobromide (celeXA) 20 mg DAILY ORAL 08/16/17 09:00 09/15/17 08:59 08/17/17 08:16 Levothyroxine Sodium (Synthroid) 50 mcg DAILY@0630 ORAL 08/16/17 06:30 09/15/17 06:29 08/17/17 06:02 Ramelteon (Rozerem) 8 mg QHS ORAL 08/16/17 21:00 09/15/17 20:59 08/16/17 21:27 Risperidone (RisperDAL) 0.25 mg Q12H PRN ORAL Agitation 08/17/17 03:00 09/16/17 02:59 Risperidone (RisperDAL) 0.25 mg Q12HR ORAL 08/16/17 21:00 09/15/17 08:59 08/17/17 08:17 Sodium Chloride 1,000 ml @ 75 mls/hr [id number] IV 08/16/17 21:30 09/15/17 21:29 08/17/17 15:48 Tamsulosin HCl (Flomax) 0.4 mg BEDTIME ORAL 08/16/17 21:00 09/15/17 20:59 08/16/17 21:28 Vancomycin HCl (Vanco rx to dose) 1 ea DAILY PRN MISC Per rx protocol 08/16/17 02:00 09/15/17 01:59 Vancomycin HCl/ Dextrose 250 ml @ 125 mls/hr Q12HR@1000,2200 IVPB 08/17/17 22:00 08/22/17 21:59 Height (Feet): 6 Height (Inches): 0.00 Weight (Pounds): 195 General Appearance: alert, non-toxic Head: normocephalic, atraumatic Eyes: bilateral anicteric Neck: full range of motion, no mass Respiratory: other - perhaps few crackles over RUL Cardiovascular: regular rate, rhythm Gastrointestinal: normal bowel sounds, non tender, soft, no mass, no organomegaly, non-distended Musculoskeletal: no calf tenderness Edema: no edema noted Generalized Neurologic: no new focality MARRY CASH Aug 17, 2017 17:51
--- NOTE | 2017-08-17 18:07 | Infectious Diseases Prog Note ---
Assessment/Plan Assessment/Plan Full consult dictated: A) 1) sepsis, fevers, leukocytosis 2) likely aspiration pna/HCAP 3) less likely CAP 4) pmh noted 5) allergies - negative P) 1) zosyn and vancomycin 2) check sputum culture, labs and chest x-ray 3) d/w Dr. Bernabe 4) thank you Subjective Allergies: Coded Allergies: No Known Allergies (Unverified , 10/20/16) Objective Vital Signs Last 24 Hour Vital Signs Date Time Temp Pulse Resp B/P (MAP) Pulse Ox O2 Delivery O2 Flow Rate FiO2 08/17/17 16:00 98.2 87 16 97/50 98 Room Air 08/17/17 15:03 88 20 97 Room Air 21 08/17/17 14:52 86 18 90 Room Air 21 08/17/17 12:00 84 08/17/17 12:00 97.9 68 18 102/64 96 Room Air 08/17/17 11:01 83 18 98 Room Air 21 08/17/17 10:50 83 20 93 Room Air 21 08/17/17 08:00 97.2 76 19 102/61 96 Room Air 08/17/17 08:00 77 08/17/17 07:45 93 Room Air 21 08/17/17 07:45 Room Air 21 08/17/17 04:09 98.7 79 20 97/60 94 Room Air 08/17/17 04:00 74 08/17/17 01:31 99.7 08/17/17 00:00 102.0 93 20 102/57 96 Room Air 08/17/17 00:00 92 08/16/17 20:00 98.1 105 20 107/64 97 Room Air 08/16/17 20:00 99 08/16/17 19:16 94 20 97 Room Air 21 08/16/17 19:14 90 20 95 Room Air 21 Height (Feet): 6 Height (Inches): 0.00 Weight (Pounds): 195 Microbiology Date/Time Source Procedure Growth Status 08/15/17 18:23 Blood Blood Culture - Preliminary NO GROWTH AFTER 24 HOURS Resulted 08/15/17 18:10 Blood Blood Culture - Preliminary NO GROWTH AFTER 24 HOURS Resulted 08/15/17 19:17 Urine,Clean Catch Urine Culture - Preliminary Mixed Gram Positive Organism Resulted Laboratory Tests Test 08/17/17 06:50 08/17/17 09:35 White Blood Count 26.0 K/UL (4.8-10.8) *H Red Blood Count 3.55 M/UL (4.70-6.10) L Hemoglobin 11.4 G/DL (14.2-18.0) L Hematocrit 32.9 % (42.0-52.0) L Mean Corpuscular Volume 93 FL (80-99) Mean Corpuscular Hemoglobin 32.2 PG (27.0-31.0) H Mean Corpuscular Hemoglobin Concent 34.7 G/DL (32.0-36.0) Red Cell Distribution Width 12.6 % (11.6-14.8) Platelet Count 288 K/UL (150-450) Mean Platelet Volume 7.5 FL (6.5-10.1) Neutrophils (%) (Auto) % (45.0-75.0) Lymphocytes (%) (Auto) % (20.0-45.0) Monocytes (%) (Auto) % (1.0-10.0) Eosinophils (%) (Auto) % (0.0-3.0) Basophils (%) (Auto) % (0.0-2.0) Differential Total Cells Counted 100 Neutrophils % (Manual) 87 % (45-75) H Lymphocytes % (Manual) 7 % (20-45) L Monocytes % (Manual) 6 % (1-10) Eosinophils % (Manual) 0 % (0-3) Basophils % (Manual) 0 % (0-2) Band Neutrophils 0 % (0-8) Platelet Estimate Adequate Platelet Morphology Normal Hypochromasia 1+ Sodium Level 136 MMOL/L (136-145) Potassium Level 3.5 MMOL/L (3.5-5.1) Chloride Level 102 MMOL/L (98-107) Carbon Dioxide Level 24 MMOL/L (21-32) Anion Gap 10 mmol/L (5-15) Blood Urea Nitrogen 14 mg/dL (7-18) Creatinine 0.9 MG/DL (0.55-1.30) Estimat Glomerular Filtration Rate mL/min (>60) Glucose Level 100 MG/DL (74-106) Calcium Level 8.5 MG/DL (8.5-10.1) Vancomycin Level Trough 9.6 ug/mL (5.0-12.0) Current Medications Medications (Trade) Dose Ordered Sig/Enoc Route PRN Reason Start Time Stop Time Status Last Admin Dose Admin Acetaminophen (Tylenol) 650 mg Q6H PRN ORAL Mild Pain/Temp > 100.5 08/16/17 02:00 09/15/17 01:59 08/17/17 00:32 Albuterol/ Ipratropium (Albuterol/ Ipratropium) 3 ml QIDRT HHN 08/16/17 07:00 08/21/17 06:59 08/17/17 14:52 Cefepime HCl 2 gm/ Dextrose 55 ml @ 110 mls/hr Q8HR IVPB 08/16/17 06:00 08/23/17 05:59 08/17/17 14:01 Citalopram Hydrobromide (celeXA) 20 mg DAILY ORAL 08/16/17 09:00 09/15/17 08:59 08/17/17 08:16 Levothyroxine Sodium (Synthroid) 50 mcg DAILY@0630 ORAL 08/16/17 06:30 09/15/17 06:29 08/17/17 06:02 Ramelteon (Rozerem) 8 mg QHS ORAL 08/16/17 21:00 09/15/17 20:59 08/16/17 21:27 Risperidone (RisperDAL) 0.25 mg Q12H PRN ORAL Agitation 08/17/17 03:00 09/16/17 02:59 Risperidone (RisperDAL) 0.25 mg Q12HR ORAL 08/16/17 21:00 09/15/17 08:59 08/17/17 08:17 Sodium Chloride 1,000 ml @ 75 mls/hr [id number] IV 08/16/17 21:30 09/15/17 21:29 08/17/17 15:48 Tamsulosin HCl (Flomax) 0.4 mg BEDTIME ORAL 08/16/17 21:00 09/15/17 20:59 08/16/17 21:28 Vancomycin HCl (Vanco rx to dose) 1 ea DAILY PRN MISC Per rx protocol 08/16/17 02:00 09/15/17 01:59 Vancomycin HCl/ Dextrose 250 ml @ 125 mls/hr Q12HR@1000,2200 IVPB 08/17/17 22:00 08/22/17 21:59 PRASANTH SCOTT Aug 17, 2017 18:07
[2017-08-17 19:30] LABS: HEMATOCRIT 32.7 % (42.0-52.0); HEMOGLOBIN 10.6 G/DL (14.2-18.0); MEAN CORPUSCULAR VOLUME 95 FL (80-99); PLATELET COUNT 303 K/UL (150-450); RED BLOOD COUNT 3.45 M/UL (4.70-6.10); RED CELL DISTRIBUTION WIDTH 12.8 % (11.6-14.8)
[2017-08-17 19:38] LABS: ANION GAP 10 mmol/L (5-15); BLOOD UREA NITROGEN 13 mg/dL (7-18); CALCIUM 7.8 MG/DL (8.5-10.1); CARBON DIOXIDE 26 MMOL/L (21-32); CHLORIDE 102 MMOL/L (98-107); CREATININE 0.8 MG/DL (0.55-1.30); POTASSIUM 3.4 MMOL/L (3.5-5.1); SODIUM 137 MMOL/L (136-145)
[2017-08-17 20:03] VITALS: BP 100/61
[2017-08-17] MEDS: Tamsulosin 0.4mg cap ORAL SCH (21:18)
[2017-08-17] MEDS: Ramelteon 8mg tab (Approved for Delirium use only) ORAL SCH (21:18)
[2017-08-17] MEDS: Vancomycin 1.5 GM/D5W 250ML IVPB SCH (21:20)
[2017-08-18] VITALS: BP 103/63
[2017-08-18 04:20] VITALS: BP 109/62
--- NOTE | 2017-08-18 04:45 | Consultation ---
DATE OF CONSULTATION: 08/17/2017 INFECTIOUS DISEASES CONSULTATION CONSULTING PHYSICIAN: Osvaldo Vela M.D. REFERRING PHYSICIAN: Vijay Bernabe M.D. REASON FOR CONSULTATION: Sepsis and pneumonia. CHIEF COMPLAINT: The patient's chief complaint coming into the hospital is fevers and altered mental status. HISTORY OF PRESENT ILLNESS: This is a 71-year-old male, who has history of mental problems. The patient was admitted to [facility] with altered mental status and fevers. Temperature was as high as 103.8 degrees. The patient has SIRS criteria with elevated white count as high as 25.6. The patient's chest x-ray showed right upper lobe pneumonia. A right mid lung actually with pneumonia. Infectious Disease consultation is requested. The patient is at risk for aspiration pneumonia and also community acquired pneumonia. The patient was placed on vancomycin and Zosyn. Sputum culture has been ordered. Blood cultures are negative. Today, I have also ordered influenza screen. Urinalysis was fairly unremarkable, 0 to 2 white blood cells. Urine culture is mixed organisms. Case was discussed with Dr. Bernabe. MAR was noted. Orders were noted. Notes were reviewed. REVIEW OF SYSTEMS: CONSTITUTIONAL: The patient has no Gordon. No central line. He is a poor historian, but he is responsive. He came with fevers. No chills at this time. No mention of weight loss or night sweats. HEAD AND NECK: No head pain, neck pain, or neck stiffness. CARDIAC: No chest pain or palpitations. Not on pressors. GASTROINTESTINAL: No nausea, vomiting, or diarrhea. GENITOURINARY: No dysuria or frequency. No Gordon. PULMONARY: He has maybe mild cough and congestion, but no severe hemoptysis or secretions. SKIN: No rash or itching. EXTREMITIES: No extremity pain. NEUROLOGIC: No obvious seizures. PAST MEDICAL HISTORY: Includes the following. The patient has a past medical history of Alzheimer's type dementia. The patient also has history of depression. The patient has history of dyslipidemia, history of prostatism. History of hypothyroidism. No history of malignancy, diabetes, or hypertension mentioned. MEDICATIONS: Outside medications were noted and reconciled. Currently in the inpatient setting he is on vancomycin and put him on Zosyn. We stopped the cefepime. He is on Risperdal, Flomax. He is on ramelteon, Risperdal, tamsulosin. He is on Celexa, albuterol, levothyroxine, vancomycin, Zosyn, and acetaminophen. ALLERGIES: No known drug allergies. No antibiotic allergies. SOCIAL HISTORY: Negative for smoking, alcohol, or drug abuse. FAMILY HISTORY: None. No mention of exposure to tuberculosis or cancer. PHYSICAL EXAMINATION: VITAL SIGNS: Temperature is 98.2 degrees, pulse rate 87, respiratory rate 16, blood pressure 97/50, saturation is 98%. On admission, pulse rate is 108 and temperature is 103.8 degrees. Respiratory rate is also elevated at 31. GENERAL: Alert, responsive, in no acute distress. HEAD AND NECK: Oral exam, no thrush. Eye exam, no icterus. Normocephalic. No facial droop. No neck stiffness. Neck is supple. LUNGS: Fairly clear bilaterally. Possible rales at the right. HEART: Regular. No gallop or murmur. ABDOMEN: Soft. Positive bowel sounds. Nontender. SKIN: No rash. MUSCULOSKELETAL: No effusion or contractures. Legs without cellulitis. PERIPHERAL VASCULAR: No cyanosis or gangrene. GENITOURINARY: No Gordon. Line sites are without phlebitis. No CVA tenderness. NEUROLOGIC: Intact. Nonfocal. LABORATORY AND DIAGNOSTIC DATA: Laboratory data is as follows: Creatinine is 0.9. White count is 26.3, hemoglobin 11.4. White count has been as high as 26, hemoglobin 11.4, creatinine 0.9. Sputum culture is pending. UA had 0 to 2 white blood cells. Urine culture is negative. Blood culture is negative today. Chest x-ray was noted and reviewed. He has a right middle lobe infiltrate, this is also reviewed with Dr. Bernabe and likely has pneumonia in the right middle lung or infiltrate. Sputum culture has been ordered and is pending now. ASSESSMENT AND PLAN: 1. The patient has sepsis syndrome with altered mental status, systemic inflammatory response syndrome criteria, fevers, leukocytosis. The patient most likely has a right middle lobe pneumonia and is high risk for aspiration or healthcare-acquired pneumonia. could have a community-acquired pneumonia less likely based on location of the infiltrate. The patient's antibiotics will be changed to vancomycin and Zosyn and I will discontinue cefepime. Check sputum culture. Followup laboratories and chest x-ray. Check white cell count. Watch temperatures. Blood cultures are negative today. UA was unremarkable for urinary tract infection. If the patient does not improve, we will consider additional imaging studies, CT scan of the chest, abdomen, and pelvis. Continue vancomycin and Zosyn for now pending workup. Check followup labs, chest x-ray, and cultures. 2. The patient has history of dementia, Alzheimer's type. 3. The patient is anemic. 4. Hypothyroidism. 5. Dyslipidemia. 6. Prostatism. 7. Depression. 8. Some episodic agitation. 9. No known allergies. 10. Social history negative. 11. MAR was noted. 12. Case discussed with RN. 13. Family history is noncontributory. 14. Case discussed with Dr. Bernabe. 15. Skin care protocol. 16. Notes and records were noted. 17. Orders were entered. Osvaldo Vela M.D. DR: Juvencio JOB#: [id number] CC:
[2017-08-18] MEDS: Albuterol/Ipratropium 3ml neb HHN SCH ×4 (07:45→19:00)
[2017-08-18 08:00] VITALS: BP 101/63
[2017-08-18] MEDS: Citalopram Hydrobromide 10mg Tab ORAL SCH (09:08)
[2017-08-18] MEDS: Vancomycin 1.5 GM/D5W 250ML IVPB SCH ×2 (09:11→20:54)
[2017-08-18 12:00] VITALS: BP 95/62
--- NOTE | 2017-08-18 12:52 | Diagnostic Imaging Report ---
Indication: Dyspnea Comparison: 08/15/2017 A single view chest radiograph was obtained. Findings: Dense right upper lobe infiltrate demonstrated. Heart size is stable. Bones are unremarkable. IMPRESSION: Right upper lobe pneumonia unchanged
--- NOTE | 2017-08-18 15:59 | Geriatric Progress Note ---
Assessment/Plan Problems: (1) Semantic dementia with behavioral disturbance (2) Delirium due to another medical condition, acute, mixed level of activity (3) Dyslipidemia (4) Prostatism (5) Lobar pneumonia (6) Hyponatremia (7) Sepsis (8) Altered mental status Assessment/Plan Physically better, slightly more responsive. Wbc, CXR consolidation remains. Will add CPT, mucomyst. Antibiotics per Dr. Vela. Behavior manageable. Mobilize as tolerated. Discussed with: hospital staff Subjective Interval Events Patient alert, seems to endorse SOB, and deny pain. Appears calm. Staff reports occasional agitation but manageable. Minimal intake documented. Now on Zosyn, vanco per Dr. Vela. Discussed f/u CXR with Dr. Duran. Despite dense consolidation, does not see any suspicious indicators of neoplasm. Will not obtain CT for now. Wbc still markedly elevated. Will ask respiratory to do CPT if patient can tolerate. Subjective Limited responses because of underlying dementia. Geriatric Geriatric Last 24 Hour Vital Signs Date Time Temp Pulse Resp B/P (MAP) Pulse Ox O2 Delivery O2 Flow Rate FiO2 08/18/17 15:26 87 18 Room Air 21 08/18/17 15:10 85 18 Room Air 21 08/18/17 12:05 87 08/18/17 12:00 97.2 76 20 95/62 94 Room Air 08/18/17 11:41 89 18 99 Room Air 21 08/18/17 11:30 83 18 95 Room Air 21 08/18/17 08:00 98.7 83 19 101/63 95 Room Air 08/18/17 07:45 Room Air 08/18/17 07:45 Room Air 08/18/17 07:34 82 08/18/17 05:42 89 08/18/17 04:20 98.1 84 20 109/62 94 Room Air 08/18/17 00:00 97.9 89 20 103/63 94 Room Air 08/18/17 00:00 87 08/17/17 20:03 98.0 88 20 100/61 94 Room Air 08/17/17 20:01 79 20 99 Room Air 21 08/17/17 20:00 93 08/17/17 19:50 86 18 96 Room Air 21 08/17/17 16:00 98.2 87 16 97/50 98 Room Air 08/17/17 16:00 93 Intake and Output 08/17/17 08/18/17 19:00 07:00 Intake Total 1072 ml 311 ml Output Total 250 ml 100 ml Balance 822 ml 211 ml Intake Oral 472 ml 236 ml IV Total 600 ml 75 ml Output Urine Total 250 ml 100 ml # Voids 2 8 Laboratory Tests Test 08/17/17 19:00 White Blood Count 26.0 K/UL (4.8-10.8) *H Red Blood Count 3.45 M/UL (4.70-6.10) L Hemoglobin 10.6 G/DL (14.2-18.0) L Hematocrit 32.7 % (42.0-52.0) L Mean Corpuscular Volume 95 FL (80-99) Mean Corpuscular Hemoglobin 30.8 PG (27.0-31.0) Mean Corpuscular Hemoglobin Concent 32.5 G/DL (32.0-36.0) Red Cell Distribution Width 12.8 % (11.6-14.8) Platelet Count 303 K/UL (150-450) Mean Platelet Volume 7.0 FL (6.5-10.1) Neutrophils (%) (Auto) % (45.0-75.0) Lymphocytes (%) (Auto) % (20.0-45.0) Monocytes (%) (Auto) % (1.0-10.0) Eosinophils (%) (Auto) % (0.0-3.0) Basophils (%) (Auto) % (0.0-2.0) Differential Total Cells Counted 100 Neutrophils % (Manual) 84 % (45-75) H Lymphocytes % (Manual) 7 % (20-45) L Monocytes % (Manual) 4 % (1-10) Eosinophils % (Manual) 3 % (0-3) Basophils % (Manual) 0 % (0-2) Band Neutrophils 2 % (0-8) Platelet Estimate Adequate Platelet Morphology Normal Hypochromasia 1+ Anisocytosis 1+ Sodium Level 137 MMOL/L (136-145) Potassium Level 3.4 MMOL/L (3.5-5.1) L Chloride Level 102 MMOL/L (98-107) Carbon Dioxide Level 26 MMOL/L (21-32) Anion Gap 10 mmol/L (5-15) Blood Urea Nitrogen 13 mg/dL (7-18) Creatinine 0.8 MG/DL (0.55-1.30) Estimat Glomerular Filtration Rate mL/min (>60) Glucose Level 137 MG/DL (74-106) H Calcium Level 7.8 MG/DL (8.5-10.1) L Current Medications Medications (Trade) Dose Ordered Sig/Enoc Route PRN Reason Start Time Stop Time Status Last Admin Dose Admin Acetaminophen (Tylenol) 650 mg Q6H PRN ORAL Mild Pain/Temp > 100.5 08/16/17 02:00 09/15/17 01:59 08/17/17 00:32 Albuterol/ Ipratropium (Albuterol/ Ipratropium) 3 ml QIDRT HHN 08/16/17 07:00 08/21/17 06:59 08/18/17 15:12 Citalopram Hydrobromide (celeXA) 20 mg DAILY ORAL 08/16/17 09:00 09/15/17 08:59 08/18/17 09:08 Levothyroxine Sodium (Synthroid) 50 mcg DAILY@0630 ORAL 08/16/17 06:30 09/15/17 06:29 08/18/17 06:36 Piperacillin Sod/ Tazobactam Sod 3.375 gm/Dextrose 100 ml @ 25 mls/hr EVERY 8 HOURS IVPB 08/17/17 22:00 08/22/17 21:59 08/18/17 15:10 Ramelteon (Rozerem) 8 mg QHS ORAL 08/16/17 21:00 09/15/17 20:59 08/17/17 21:18 Risperidone (RisperDAL) 0.25 mg Q12H PRN ORAL Agitation 08/17/17 03:00 09/16/17 02:59 Risperidone (RisperDAL) 0.25 mg Q12HR ORAL 08/16/17 21:00 09/15/17 08:59 08/18/17 09:08 Sodium Chloride 1,000 ml @ 75 mls/hr [id number] IV 08/16/17 21:30 09/15/17 21:29 08/17/17 15:48 Tamsulosin HCl (Flomax) 0.4 mg BEDTIME ORAL 08/16/17 21:00 09/15/17 20:59 08/17/17 21:18 Vancomycin HCl (Vanco rx to dose) 1 ea DAILY PRN MISC Per rx protocol 08/16/17 02:00 09/15/17 01:59 Vancomycin HCl/ Dextrose 250 ml @ 125 mls/hr Q12HR@1000,2200 IVPB 08/17/17 22:00 08/22/17 21:59 08/18/17 09:11 Height (Feet): 6 Height (Inches): 0.00 Weight (Pounds): 195 General Appearance: no apparent distress, alert Head: normocephalic, atraumatic Eyes: bilateral anicteric ENT: normal voice Neck: full range of motion, no mass Respiratory: other - some egophony and crakles near anterior axillary line, upper R chest. Cardiovascular: regular rate, rhythm Gastrointestinal: normal bowel sounds, non tender, soft, no mass, no organomegaly Musculoskeletal: no calf tenderness Edema: no edema noted Generalized Neurologic: no new focality MARRY CASH Aug 18, 2017 15:58
[2017-08-18 16:00] VITALS: BP 116/68
--- NOTE | 2017-08-18 18:34 | Cardiology Progress Note ---
Assessment/Plan Assessment/Plan [id number] Objective Last 24 Hour Vital Signs Date Time Temp Pulse Resp B/P (MAP) Pulse Ox O2 Delivery O2 Flow Rate FiO2 08/18/17 16:00 98.1 70 20 116/68 94 Room Air 08/18/17 15:26 87 18 Room Air 21 08/18/17 15:10 85 18 Room Air 21 08/18/17 12:05 87 08/18/17 12:00 97.2 76 20 95/62 94 Room Air 08/18/17 11:41 89 18 99 Room Air 21 08/18/17 11:30 83 18 95 Room Air 21 08/18/17 08:00 98.7 83 19 101/63 95 Room Air 08/18/17 07:45 Room Air 08/18/17 07:45 Room Air 08/18/17 07:34 82 08/18/17 05:42 89 08/18/17 04:20 98.1 84 20 109/62 94 Room Air 08/18/17 00:00 97.9 89 20 103/63 94 Room Air 08/18/17 00:00 87 08/17/17 20:03 98.0 88 20 100/61 94 Room Air 08/17/17 20:01 79 20 99 Room Air 21 08/17/17 20:00 93 08/17/17 19:50 86 18 96 Room Air 21 Intake and Output 08/17/17 08/18/17 19:00 07:00 Intake Total 1072 ml 311 ml Output Total 250 ml 100 ml Balance 822 ml 211 ml Intake Oral 472 ml 236 ml IV Total 600 ml 75 ml Output Urine Total 250 ml 100 ml # Voids 2 8 Laboratory Tests Test 08/17/17 19:00 White Blood Count 26.0 K/UL (4.8-10.8) *H Red Blood Count 3.45 M/UL (4.70-6.10) L Hemoglobin 10.6 G/DL (14.2-18.0) L Hematocrit 32.7 % (42.0-52.0) L Mean Corpuscular Volume 95 FL (80-99) Mean Corpuscular Hemoglobin 30.8 PG (27.0-31.0) Mean Corpuscular Hemoglobin Concent 32.5 G/DL (32.0-36.0) Red Cell Distribution Width 12.8 % (11.6-14.8) Platelet Count 303 K/UL (150-450) Mean Platelet Volume 7.0 FL (6.5-10.1) Neutrophils (%) (Auto) % (45.0-75.0) Lymphocytes (%) (Auto) % (20.0-45.0) Monocytes (%) (Auto) % (1.0-10.0) Eosinophils (%) (Auto) % (0.0-3.0) Basophils (%) (Auto) % (0.0-2.0) Differential Total Cells Counted 100 Neutrophils % (Manual) 84 % (45-75) H Lymphocytes % (Manual) 7 % (20-45) L Monocytes % (Manual) 4 % (1-10) Eosinophils % (Manual) 3 % (0-3) Basophils % (Manual) 0 % (0-2) Band Neutrophils 2 % (0-8) Platelet Estimate Adequate Platelet Morphology Normal Hypochromasia 1+ Anisocytosis 1+ Sodium Level 137 MMOL/L (136-145) Potassium Level 3.4 MMOL/L (3.5-5.1) L Chloride Level 102 MMOL/L (98-107) Carbon Dioxide Level 26 MMOL/L (21-32) Anion Gap 10 mmol/L (5-15) Blood Urea Nitrogen 13 mg/dL (7-18) Creatinine 0.8 MG/DL (0.55-1.30) Estimat Glomerular Filtration Rate mL/min (>60) Glucose Level 137 MG/DL (74-106) H Calcium Level 7.8 MG/DL (8.5-10.1) L Microbiology Date/Time Source Procedure Growth Status 08/17/17 18:35 Nasal Nares Left Influenza Types A,B Antigen (PERRY) - Final Complete 08/15/17 19:17 Nasal Nares MRSA Culture - Final NO METHICILLIN RESISTANT STAPH AUREUS... Complete 08/15/17 19:17 Urine,Clean Catch Urine Culture - Final Mixed Gram Positive Organism Complete 08/15/17 19:17 Rectum VRE Culture - Final NO VANCOMYCIN RESISTANT ENTEROCOCCUS ... Complete URSZULA SMART Aug 18, 2017 18:34
[2017-08-18] MEDS ORDERED: Acetylcysteine 20% Soln 4ml HHN SCH (19:00)
[2017-08-18 20:00] VITALS: BP 99/59
[2017-08-18] MEDS: Ramelteon 8mg tab (Approved for Delirium use only) ORAL SCH (20:53)
[2017-08-18] MEDS: Tamsulosin 0.4mg cap ORAL SCH (20:53)
--- NOTE | 2017-08-18 23:45 | Consultation ---
DATE OF CONSULTATION: 08/18/2017 CARDIOLOGY CONSULTATION CONSULTING PHYSICIAN: Ismael Villalobos M.D. REFERRING PHYSICIAN: Vijay Bernabe M.D. REASON FOR REFERRAL: Wide complex tachycardia. HISTORY OF PRESENT ILLNESS: This is an elderly gentleman, who is really not able to provide any meaningful history whatsoever. Information has been obtained from review of the patient's chart here at [facility] as well as my attempt to review the patient's chart at [facility]. The patient has been admitted from the hospital with a fever of 103 degrees, became lethargic, and the patient was noted to have significantly elevated white count of 25,000 and borderline elevated lactic acid level. He is unfortunately aphasic and unable to respond to any verbal stimuli, and he has been here over the past few days and getting treatment. He was noted to have an episode of wide complex tachycardia. PAST MEDICAL HISTORY: According to Dr. Bernabe's notation, there is a history of advanced dementia family with aphasia, depression, hyperlipidemia, and prostatism, treated with Flomax. ALLERGIES: No allergy to medications. SOCIAL HISTORY: The patient previously worked in [employer] on [employer] He is to his , who also has multiple sclerosis. REVIEW OF SYSTEMS: Unable to obtain. PHYSICAL EXAMINATION: GENERAL: An elderly gentleman, in no respiratory distress, arousable, responsive, and answers some of the questions with just yes or no, but really not a lot. He is lying down flat. VITAL SIGNS: His vital signs had shown blood pressure anywhere between the mid 90s to 116/68 with heart rates in the 70s and 80s, and his saturations are 94% to 99% on room air. LUNGS: Anteriorly clear to auscultation. CARDIAC: Regular rate and rhythm. No heaves, thrills, or gallops noted. ABDOMEN: Soft and nontender. Positive bowel sounds. EXTREMITIES: There is no clubbing, cyanosis, nor edema. NEUROLOGIC: He is responsive as mentioned, but not really verbally communicative. LABORATORY DATA: The patient's labs include white count of 26,000, hemoglobin 10.6, platelet count of 303,000, and sedimentation rate of 97. Sodium 137, potassium 3.4, chloride 102, bicarbonate 26, BUN 13, creatinine 0.8, glucose of 137, and calcium is 7. His troponin was 0.00 at the time of admission on 08/15/2017. ProBNP was only 627. Urinalysis is 0 to 2 WBCs. His electrocardiogram shows normal sinus rhythm, normal QRS axis, and no ST or T-wave abnormalities. Telemetry shows sinus with few beats of wide complex tachycardia. There is no PVCs and no atrial fibrillation documented on the EKG. IMAGING: The patient's imaging shows a chest x-ray that was performed today shows upper lobe pneumonia unchanged. ASSESSMENT: 1. Wide complex tachycardia, nonsustained. 2. Dementia. 3. Probable pneumonia. 4. Leukocytosis. Dr. Bernabe, this patient was seen in cardiac consultation. The patient has no signs or history of cardiac issues. He is on medications according to the nurse in the extended care facility that include a thyroid medication as well as sleeping medications. I will order a set of cardiac enzymes, repeat EKG, and an echocardiogram tomorrow for evaluation of systolic function and depending on the findings of that, I may or may not recommend any further evaluations. Electrolytes will be checked and a TSH will also be checked. Dr. Bernabe, thank you for allowing me to participate in the care of this patient. Ismael Villalobos M.D. : ELEONORA JOB#: [id number] CC:
[2017-08-19 00:01] VITALS: BP 108/61
[2017-08-19 04:00] VITALS: BP 99/61
[2017-08-19] MEDS: Albuterol/Ipratropium 3ml neb HHN SCH ×4 (07:00→19:35)
[2017-08-19 08:00] VITALS: BP 115/61
[2017-08-19 08:22] LABS: BASOPHILS % (AUTO) 1.1 % (0.0-2.0); EOSINOPHILS % (AUTO) 1.8 % (0.0-3.0); HEMATOCRIT 33.8 % (42.0-52.0); HEMOGLOBIN 11.2 G/DL (14.2-18.0); LYMPHOCYTES % (AUTO) 9.5 % (20.0-45.0); MEAN CORPUSCULAR VOLUME 94 FL (80-99); MONOCYTES % (AUTO) 7.8 % (1.0-10.0); NEUTROPHILS % (AUTO) 79.7 % (45.0-75.0); PLATELET COUNT 399 K/UL (150-450); RED BLOOD COUNT 3.61 M/UL (4.70-6.10); RED CELL DISTRIBUTION WIDTH 13.1 % (11.6-14.8); WHITE BLOOD COUNT 11.9 K/UL (4.8-10.8)
[2017-08-19] MEDS: Citalopram Hydrobromide 10mg Tab ORAL SCH (09:09)
[2017-08-19 10:06] LABS: ALANINE AMINOTRANSFERASE 58 U/L (12-78); ALBUMIN 1.8 G/DL (3.4-5.0); ALBUMIN/GLOBULIN RATIO 0.4 (1.0-2.7); ALKALINE PHOSPHATASE 77 U/L (46-116); ANION GAP 9 mmol/L (5-15); ASPARTATE AMINO TRANSFERASE 58 U/L (15-37); BILIRUBIN,TOTAL 0.5 MG/DL (0.2-1.0); BLOOD UREA NITROGEN 6 mg/dL (7-18); CALCIUM 8.5 MG/DL (8.5-10.1); CARBON DIOXIDE 26 MMOL/L (21-32); CHLORIDE 105 MMOL/L (98-107); CREATININE 0.7 MG/DL (0.55-1.30); POTASSIUM 3.3 MMOL/L (3.5-5.1); SODIUM 140 MMOL/L (136-145)
[2017-08-19] MEDS: Vancomycin 1.5 GM/D5W 250ML IVPB SCH ×2 (11:02→20:58)
[2017-08-19 12:00] VITALS: BP 107/63
--- NOTE | 2017-08-19 14:35 | Geriatric Progress Note ---
Assessment/Plan Problems: (1) Semantic dementia with behavioral disturbance (2) Delirium due to another medical condition, acute, mixed level of activity (3) Dyslipidemia (4) Prostatism (5) Lobar pneumonia (6) Hyponatremia (7) Sepsis (8) Altered mental status Assessment/Plan Now apparently responding to tx. Given dense infiltrate will likely require another week of IV antibiotics. Will discuss with Dr. Vela. Discussed in detail with case management, likely would need SNF for completion of antibiotic course. Recheck labs, continue current regimen. Discussed with: hospital staff Subjective Interval Events Patient lying in bed, alert, verbalization more robust. However, responses appear automatic, not indicating an accurate response. Not overtly in distress. Last p.m. some wide complex tachycardia. Seen by Dr. Villalobos, w/u unrevealing so far, including normal echo, normal Troponin. K low, being supplemented. Wbc dropped precipitously, apparently associated with change in antibiotics per Dr. Vela. Per staff, oral intake is variable. Occasionally refuses care or uncooperative, gait unsteady, but generally quiet. Staff feels patient still requires sitter for safety. Subjective Limited responses because of underlying dementia. Geriatric Geriatric Last 24 Hour Vital Signs Date Time Temp Pulse Resp B/P (MAP) Pulse Ox O2 Delivery O2 Flow Rate FiO2 08/19/17 12:00 97.5 58 18 107/63 92 Room Air 08/19/17 11:58 87 18 Room Air 08/19/17 11:50 87 18 Room Air 21 08/19/17 08:00 97.5 73 18 115/61 95 Room Air 08/19/17 08:00 81 08/19/17 07:30 Room Air 08/19/17 07:30 Room Air 08/19/17 04:00 72 08/19/17 04:00 97.3 70 20 99/61 95 Room Air 08/19/17 00:01 96.6 66 18 108/61 94 Nasal Cannula 08/19/17 00:00 70 08/18/17 20:00 97.9 75 20 99/59 94 Room Air 08/18/17 20:00 76 08/18/17 19:30 Room Air 21 08/18/17 19:30 Room Air 21 08/18/17 16:00 98.1 70 20 116/68 94 Room Air 08/18/17 15:26 87 18 Room Air 21 08/18/17 15:16 71 08/18/17 15:10 85 18 Room Air 21 Intake and Output 08/18/17 08/19/17 19:00 07:00 Intake Total 1125 ml 275 ml Output Total 100 ml Balance 1125 ml 175 ml Intake Oral 450 ml 200 ml IV Total 675 ml 75 ml Output Urine Total 100 ml # Voids 6 1 # Bowel Movements 1 3 Laboratory Tests Test 08/19/17 07:05 08/19/17 09:10 White Blood Count 11.9 K/UL (4.8-10.8) H Red Blood Count 3.61 M/UL (4.70-6.10) L Hemoglobin 11.2 G/DL (14.2-18.0) L Hematocrit 33.8 % (42.0-52.0) L Mean Corpuscular Volume 94 FL (80-99) Mean Corpuscular Hemoglobin 30.9 PG (27.0-31.0) Mean Corpuscular Hemoglobin Concent 33.0 G/DL (32.0-36.0) Red Cell Distribution Width 13.1 % (11.6-14.8) Platelet Count 399 K/UL (150-450) Mean Platelet Volume 6.5 FL (6.5-10.1) Neutrophils (%) (Auto) 79.7 % (45.0-75.0) H Lymphocytes (%) (Auto) 9.5 % (20.0-45.0) L Monocytes (%) (Auto) 7.8 % (1.0-10.0) Eosinophils (%) (Auto) 1.8 % (0.0-3.0) Basophils (%) (Auto) 1.1 % (0.0-2.0) Sodium Level 140 MMOL/L (136-145) Potassium Level 3.3 MMOL/L (3.5-5.1) L Chloride Level 105 MMOL/L (98-107) Carbon Dioxide Level 26 MMOL/L (21-32) Anion Gap 9 mmol/L (5-15) Blood Urea Nitrogen 6 mg/dL (7-18) L Creatinine 0.7 MG/DL (0.55-1.30) Estimat Glomerular Filtration Rate mL/min (>60) Glucose Level 90 MG/DL (74-106) Calcium Level 8.5 MG/DL (8.5-10.1) Magnesium Level 2.1 MG/DL (1.8-2.4) Total Bilirubin 0.5 MG/DL (0.2-1.0) Aspartate Amino Transf (AST/SGOT) 58 U/L (15-37) H Alanine Aminotransferase (ALT/SGPT) 58 U/L (12-78) Alkaline Phosphatase 77 U/L (46-116) Troponin I 0.000 ng/mL (0.000-0.056) Pro-B-Type Natriuretic Peptide 1177 pg/mL (0-125) H Total Protein 6.0 G/DL (6.4-8.2) L Albumin 1.8 G/DL (3.4-5.0) L Globulin 4.2 g/dL Albumin/Globulin Ratio 0.4 (1.0-2.7) L Thyroid Stimulating Hormone (TSH) 2.064 uiU/mL (0.358-3.740) Vancomycin Level Trough 13.5 ug/mL (5.0-12.0) H Current Medications Medications (Trade) Dose Ordered Sig/Enoc Route PRN Reason Start Time Stop Time Status Last Admin Dose Admin Acetaminophen (Tylenol) 650 mg Q6H PRN ORAL Mild Pain/Temp > 100.5 08/16/17 02:00 09/15/17 01:59 08/17/17 00:32 Acetylcysteine (Mucomyst) 200 mg Q6HRT [facility] 08/18/17 19:00 09/17/17 18:59 Albuterol/ Ipratropium (Albuterol/ Ipratropium) 3 ml QIDRT [facility] 08/16/17 07:00 08/21/17 06:59 08/19/17 12:01 Citalopram Hydrobromide (celeXA) 20 mg DAILY ORAL 08/16/17 09:00 09/15/17 08:59 08/19/17 09:09 Levothyroxine Sodium (Synthroid) 50 mcg DAILY@0630 ORAL 08/16/17 06:30 09/15/17 06:29 08/19/17 06:26 Piperacillin Sod/ Tazobactam Sod 3.375 gm/Dextrose 100 ml @ 25 mls/hr EVERY 8 HOURS IVPB 08/17/17 22:00 08/22/17 21:59 08/19/17 13:52 Ramelteon (Rozerem) 8 mg QHS ORAL 08/16/17 21:00 09/15/17 20:59 08/18/17 20:53 Risperidone (RisperDAL) 0.25 mg Q12H PRN ORAL Agitation 08/17/17 03:00 09/16/17 02:59 Risperidone (RisperDAL) 0.25 mg Q12HR ORAL 08/16/17 21:00 09/15/17 08:59 08/19/17 09:10 Tamsulosin HCl (Flomax) 0.4 mg BEDTIME ORAL 08/16/17 21:00 09/15/17 20:59 08/18/17 20:53 Vancomycin HCl (Vanco rx to dose) 1 ea DAILY PRN MISC Per rx protocol 08/16/17 02:00 09/15/17 01:59 Vancomycin HCl/ Dextrose 250 ml @ 125 mls/hr Q12HR@1000,2200 IVPB 08/17/17 22:00 08/22/17 21:59 08/19/17 11:02 Height (Feet): 6 Height (Inches): 0.00 Weight (Pounds): 195 General Appearance: no apparent distress, alert Head: normocephalic, atraumatic Eyes: bilateral anicteric ENT: normal voice Neck: full range of motion, no mass Respiratory: other - ? egophony, crackles anteriorly RUL. Cardiovascular: regular rate, rhythm Gastrointestinal: normal bowel sounds, soft, no mass, no organomegaly Musculoskeletal: no calf tenderness Edema: no edema noted Generalized Neurologic: no new focality MARRY CASH Aug 19, 2017 14:35
--- NOTE | 2017-08-19 15:26 | Cardiology Report ---
APPROVED REPORT EXAM: Two-dimensional and M-mode echocardiogram with Doppler and color Doppler. INDICATION Supraventricular Tachycardia M-Mode DIMENSIONS IVSd1.0 (0.7-1.1cm)Left Atrium (MM)2.8 (1.6-4.0cm) LVDd5.2 (3.5-5.6cm)Aortic Root2.7 (2.0-3.7cm) PWd0.7 (0.7-1.1cm)Aortic Cusp Exc.2.0 (1.5-2.0cm) LVDs2.6 (2.5-4.0cm) PWs1.2 cm Technically difficult and limited study due to combative patient. Study quality precludes accurate assessment of regional wall motion. Normal left ventricular chamber size, systolic function and wall motion. Left ventricular ejection fraction estimated to be 60-65 %. No evidence of left ventricular hypertrophy. Anterior Echo-free space, may be due to pericardial fat or effusion. All other cardiac chamber sizes are within normal limits. Left atrial chamber size is within normal limits. Right atrial chamber size is at upper limits of normal. Mild right ventricular enlargement. Focal aortic valve sclerosis with adequate cusp excursion. Thickened mitral valve leaflets with normal excursion. Mitral annulus and aortic root calcification. Pulmonic valve not well visualized. Normal tricuspid valve structure. IVC at normal size with physiologic collapse. A color flow and spectral Doppler study was performed and revealed: No aortic regurgitation. No mitral regurgitation. Mitral inflow indicates normal left ventricular diastolic function. Trace tricuspid regurgitation. Tricuspid systolic velocities suggests peak right ventricular systolic pressure of 40 mmHg, consistent with mild pulmonary hypertension. No pulmonic regurgitation present.
--- NOTE | 2017-08-19 15:40 | Cardiology Report ---
APPROVED REPORT EKG Measurement Heart [id number] Normal sinus rhythm with sinus arrhythmia Low voltage QRS Borderline ECG
[2017-08-19 16:00] VITALS: BP 107/54
--- NOTE | 2017-08-19 19:13 | Cardiology Progress Note ---
Assessment/Plan Assessment/Plan 1. Wide complex tachycardia, nonsustained. 2. Dementia. 3. Probable pneumonia. 4. Leukocytosis 5. electolyte abn k low trop neg pro bnp min elevated echo shows normal lv systolic function ekg no st t wave abn replete k dc tele no indication for any cardiac robbins at this time Subjective ROS Limited/Unobtainable: Yes Subjective sitter at bedside agitated removed iv replaced Objective Last 24 Hour Vital Signs Date Time Temp Pulse Resp B/P (MAP) Pulse Ox O2 Delivery O2 Flow Rate FiO2 08/19/17 16:00 97.7 71 20 107/54 93 Room Air 08/19/17 16:00 75 08/19/17 15:25 92 18 Room Air 21 08/19/17 15:10 90 18 Room Air 21 08/19/17 12:00 69 08/19/17 12:00 97.5 58 18 107/63 92 Room Air 08/19/17 11:58 87 18 Room Air 21 08/19/17 11:50 87 18 Room Air 21 08/19/17 08:00 97.5 73 18 115/61 95 Room Air 08/19/17 08:00 81 08/19/17 07:30 Room Air 08/19/17 07:30 Room Air 08/19/17 04:00 72 08/19/17 04:00 97.3 70 20 99/61 95 Room Air 08/19/17 00:01 96.6 66 18 108/61 94 Nasal Cannula 08/19/17 00:00 70 08/18/17 20:00 97.9 75 20 99/59 94 Room Air 08/18/17 20:00 76 08/18/17 19:30 Room Air 21 08/18/17 19:30 Room Air 21 General Appearance: no apparent distress, other - calm at this moment Neck: supple Cardiovascular: normal rate, regular rhythm Respiratory/Chest: lungs clear - ant Abdomen: normal bowel sounds, non tender, soft Extremities: no swelling Intake and Output 08/18/17 08/19/17 19:00 07:00 Intake Total 1125 ml 275 ml Output Total 100 ml Balance 1125 ml 175 ml Intake Oral 450 ml 200 ml IV Total 675 ml 75 ml Output Urine Total 100 ml # Voids 6 1 # Bowel Movements 1 3 Laboratory Tests Test 08/19/17 07:05 08/19/17 09:10 White Blood Count 11.9 K/UL (4.8-10.8) H Red Blood Count 3.61 M/UL (4.70-6.10) L Hemoglobin 11.2 G/DL (14.2-18.0) L Hematocrit 33.8 % (42.0-52.0) L Mean Corpuscular Volume 94 FL (80-99) Mean Corpuscular Hemoglobin 30.9 PG (27.0-31.0) Mean Corpuscular Hemoglobin Concent 33.0 G/DL (32.0-36.0) Red Cell Distribution Width 13.1 % (11.6-14.8) Platelet Count 399 K/UL (150-450) Mean Platelet Volume 6.5 FL (6.5-10.1) Neutrophils (%) (Auto) 79.7 % (45.0-75.0) H Lymphocytes (%) (Auto) 9.5 % (20.0-45.0) L Monocytes (%) (Auto) 7.8 % (1.0-10.0) Eosinophils (%) (Auto) 1.8 % (0.0-3.0) Basophils (%) (Auto) 1.1 % (0.0-2.0) Sodium Level 140 MMOL/L (136-145) Potassium Level 3.3 MMOL/L (3.5-5.1) L Chloride Level 105 MMOL/L (98-107) Carbon Dioxide Level 26 MMOL/L (21-32) Anion Gap 9 mmol/L (5-15) Blood Urea Nitrogen 6 mg/dL (7-18) L Creatinine 0.7 MG/DL (0.55-1.30) Estimat Glomerular Filtration Rate mL/min (>60) Glucose Level 90 MG/DL (74-106) Calcium Level 8.5 MG/DL (8.5-10.1) Magnesium Level 2.1 MG/DL (1.8-2.4) Total Bilirubin 0.5 MG/DL (0.2-1.0) Aspartate Amino Transf (AST/SGOT) 58 U/L (15-37) H Alanine Aminotransferase (ALT/SGPT) 58 U/L (12-78) Alkaline Phosphatase 77 U/L (46-116) Troponin I 0.000 ng/mL (0.000-0.056) Pro-B-Type Natriuretic Peptide 1177 pg/mL (0-125) H Total Protein 6.0 G/DL (6.4-8.2) L Albumin 1.8 G/DL (3.4-5.0) L Globulin 4.2 g/dL Albumin/Globulin Ratio 0.4 (1.0-2.7) L Thyroid Stimulating Hormone (TSH) 2.064 uiU/mL (0.358-3.740) Vancomycin Level Trough 13.5 ug/mL (5.0-12.0) H Microbiology Date/Time Source Procedure Growth Status 08/17/17 18:35 Nasal Nares Left Influenza Types A,B Antigen (PERRY) - Final Complete URSZULA SMART Aug 19, 2017 19:13
--- NOTE | 2017-08-19 19:40 | Infectious Diseases Prog Note ---
Assessment/Plan Assessment/Plan ASSESSMENT AND PLAN: 1. Pna - ? aspiration/HCAP, ? cap, sepsis, leukocytosis, fevers, sirs - clinically better, leukocytosis better, fevers better - zosyn and vancomycin - day # 3 abx, check sputum culture - check sputum culture, labs and chest x-ray - patient will need 10-14 day total abx tx course 2. The patient has history of dementia, Alzheimer's type. 3. The patient is anemic. 4. Hypothyroidism. 5. Dyslipidemia. 6. Prostatism. 7. Depression. 8. Some episodic agitation. 9. No known allergies. 10. Social history negative. 11. MAR was noted. 12. Case discussed with RN. 13. Family history is noncontributory. 14. Case discussed with Dr. Bernabe. 15. Skin care protocol. 16. Notes and records were noted. 17. Orders were entered. Subjective Constitutional: Reports: fatigue, other - more alert , Denies: fever HEENT: Reports: congestion - less Respiratory: Reports: shortness of breath - less Cardiovascular: Denies: chest pain Gastrointestinal/Abdominal: Denies: nausea, vomiting Genitourinary: Reports: other - no santos, Denies: dysuria, hematuria Neurologic: Denies: headache Psychiatric: Denies: depression Skin: Denies: rash Hematologic: Denies: bleeding Musculoskeletal: Denies: pain Allergies: Coded Allergies: No Known Allergies (Unverified , 10/20/16) Objective Vital Signs Last 24 Hour Vital Signs Date Time Temp Pulse Resp B/P (MAP) Pulse Ox O2 Delivery O2 Flow Rate FiO2 08/19/17 16:00 97.7 71 20 107/54 93 Room Air 08/19/17 16:00 75 08/19/17 15:25 92 18 Room Air 21 08/19/17 15:10 90 18 Room Air 21 08/19/17 12:00 69 08/19/17 12:00 97.5 58 18 107/63 92 Room Air 08/19/17 11:58 87 18 Room Air 21 08/19/17 11:50 87 18 Room Air 21 08/19/17 08:00 97.5 73 18 115/61 95 Room Air 08/19/17 08:00 81 08/19/17 07:30 Room Air 08/19/17 07:30 Room Air 08/19/17 04:00 72 08/19/17 04:00 97.3 70 20 99/61 95 Room Air 08/19/17 00:01 96.6 66 18 108/61 94 Nasal Cannula 08/19/17 00:00 70 08/18/17 20:00 97.9 75 20 99/59 94 Room Air 08/18/17 20:00 76 Height (Feet): 6 Height (Inches): 0.00 Weight (Pounds): 195 General Appearance: WD/WN, no acute distress HEENT: normocephalic, atraumatic, anicteric, mucous membranes moist Respiratory/Chest: crackles/rales, rhonchi - bilaterally Cardiovascular: normal rate, regular rhythm, no gallop/murmur, no JVD Abdomen: normal bowel sounds, soft, non tender, no organomegaly, non distended Genitourinary: other - no santos, no cva pain Extremities: no cyanosis Skin: no rash Neurologic/Psychiatric: procedures nurse II-XII grossly normal, alert, oriented x 3, responsive Lymphatic: no neck adenopathy Musculoskeletal: no effusion Objective 08/18 - chest x-ray - Dense right upper lobe infiltrate demonstrated. Heart size is stable. Bones are unremarkable. IMPRESSION: Right upper lobe pneumonia unchanged Microbiology Date/Time Source Procedure Growth Status 08/15/17 18:23 Blood Blood Culture - Preliminary NO GROWTH AFTER 72 HOURS Resulted 08/17/17 18:35 Nasal Nares Left Influenza Types A,B Antigen (PERRY) - Final Complete 08/15/17 19:17 Urine,Clean Catch Urine Culture - Final Mixed Gram Positive Organism Complete 08/15/17 19:17 Rectum VRE Culture - Final NO VANCOMYCIN RESISTANT ENTEROCOCCUS ... Complete Microbiology Date/Time Source Procedure Growth Status 08/17/17 18:35 Nasal Nares Left Influenza Types A,B Antigen (PERRY) - Final Complete Laboratory Tests Test 08/19/17 07:05 08/19/17 09:10 White Blood Count 11.9 K/UL (4.8-10.8) H Red Blood Count 3.61 M/UL (4.70-6.10) L Hemoglobin 11.2 G/DL (14.2-18.0) L Hematocrit 33.8 % (42.0-52.0) L Mean Corpuscular Volume 94 FL (80-99) Mean Corpuscular Hemoglobin 30.9 PG (27.0-31.0) Mean Corpuscular Hemoglobin Concent 33.0 G/DL (32.0-36.0) Red Cell Distribution Width 13.1 % (11.6-14.8) Platelet Count 399 K/UL (150-450) Mean Platelet Volume 6.5 FL (6.5-10.1) Neutrophils (%) (Auto) 79.7 % (45.0-75.0) H Lymphocytes (%) (Auto) 9.5 % (20.0-45.0) L Monocytes (%) (Auto) 7.8 % (1.0-10.0) Eosinophils (%) (Auto) 1.8 % (0.0-3.0) Basophils (%) (Auto) 1.1 % (0.0-2.0) Sodium Level 140 MMOL/L (136-145) Potassium Level 3.3 MMOL/L (3.5-5.1) L Chloride Level 105 MMOL/L (98-107) Carbon Dioxide Level 26 MMOL/L (21-32) Anion Gap 9 mmol/L (5-15) Blood Urea Nitrogen 6 mg/dL (7-18) L Creatinine 0.7 MG/DL (0.55-1.30) Estimat Glomerular Filtration Rate mL/min (>60) Glucose Level 90 MG/DL (74-106) Calcium Level 8.5 MG/DL (8.5-10.1) Magnesium Level 2.1 MG/DL (1.8-2.4) Total Bilirubin 0.5 MG/DL (0.2-1.0) Aspartate Amino Transf (AST/SGOT) 58 U/L (15-37) H Alanine Aminotransferase (ALT/SGPT) 58 U/L (12-78) Alkaline Phosphatase 77 U/L (46-116) Troponin I 0.000 ng/mL (0.000-0.056) Pro-B-Type Natriuretic Peptide 1177 pg/mL (0-125) H Total Protein 6.0 G/DL (6.4-8.2) L Albumin 1.8 G/DL (3.4-5.0) L Globulin 4.2 g/dL Albumin/Globulin Ratio 0.4 (1.0-2.7) L Thyroid Stimulating Hormone (TSH) 2.064 uiU/mL (0.358-3.740) Vancomycin Level Trough 13.5 ug/mL (5.0-12.0) H Current Medications Medications (Trade) Dose Ordered Sig/Enoc Route PRN Reason Start Time Stop Time Status Last Admin Dose Admin Acetaminophen (Tylenol) 650 mg Q6H PRN ORAL Mild Pain/Temp > 100.5 08/16/17 02:00 09/15/17 01:59 08/17/17 00:32 Acetylcysteine (Mucomyst) 200 mg Q6HRT [facility] 08/18/17 19:00 09/17/17 18:59 08/19/17 15:19 Albuterol/ Ipratropium (Albuterol/ Ipratropium) 3 ml QIDRT [facility] 08/16/17 07:00 08/21/17 06:59 08/19/17 15:19 Citalopram Hydrobromide (celeXA) 20 mg DAILY ORAL 08/16/17 09:00 09/15/17 08:59 08/19/17 09:09 Levothyroxine Sodium (Synthroid) 50 mcg DAILY@0630 ORAL 08/16/17 06:30 09/15/17 06:29 08/19/17 06:26 Piperacillin Sod/ Tazobactam Sod 3.375 gm/Dextrose 100 ml @ 25 mls/hr EVERY 8 HOURS IVPB 08/17/17 22:00 08/22/17 21:59 08/19/17 13:52 Ramelteon (Rozerem) 8 mg QHS ORAL 08/16/17 21:00 09/15/17 20:59 08/18/17 20:53 Risperidone (RisperDAL) 0.25 mg Q12H PRN ORAL Agitation 08/17/17 03:00 09/16/17 02:59 Risperidone (RisperDAL) 0.25 mg Q12HR ORAL 08/16/17 21:00 09/15/17 08:59 08/19/17 09:10 Tamsulosin HCl (Flomax) 0.4 mg BEDTIME ORAL 08/16/17 21:00 09/15/17 20:59 08/18/17 20:53 Vancomycin HCl (Vanco rx to dose) 1 ea DAILY PRN MISC Per rx protocol 08/16/17 02:00 09/15/17 01:59 Vancomycin HCl/ Dextrose 250 ml @ 125 mls/hr Q12HR@1000,2200 IVPB 08/17/17 22:00 08/22/17 21:59 08/19/17 11:02 PRASANTH SCOTT Aug 19, 2017 19:40
[2017-08-19 20:02] VITALS: BP 113/62
[2017-08-19] MEDS: Ramelteon 8mg tab (Approved for Delirium use only) ORAL SCH (20:58)
[2017-08-19] MEDS: Tamsulosin 0.4mg cap ORAL SCH (20:58)
[2017-08-20 00:07] VITALS: BP 128/63
[2017-08-20 04:16] VITALS: BP 128/74
[2017-08-20] MEDS: Albuterol/Ipratropium 3ml neb HHN SCH ×3 (06:30→15:25)
[2017-08-20 07:54] LABS: ANION GAP 7 mmol/L (5-15); BLOOD UREA NITROGEN 7 mg/dL (7-18); CALCIUM 8.8 MG/DL (8.5-10.1); CARBON DIOXIDE 28 MMOL/L (21-32); CHLORIDE 106 MMOL/L (98-107); POTASSIUM 3.6 MMOL/L (3.5-5.1); SODIUM 141 MMOL/L (136-145)
[2017-08-20 07:57] LABS: BASOPHILS % (AUTO) 1.4 % (0.0-2.0); EOSINOPHILS % (AUTO) 2.3 % (0.0-3.0); HEMATOCRIT 34.9 % (42.0-52.0); HEMOGLOBIN 11.8 G/DL (14.2-18.0); LYMPHOCYTES % (AUTO) 10.3 % (20.0-45.0); MEAN CORPUSCULAR VOLUME 94 FL (80-99); MONOCYTES % (AUTO) 8.9 % (1.0-10.0); NEUTROPHILS % (AUTO) 77.1 % (45.0-75.0); PLATELET COUNT 414 K/UL (150-450); RED BLOOD COUNT 3.73 M/UL (4.70-6.10); RED CELL DISTRIBUTION WIDTH 12.9 % (11.6-14.8); WHITE BLOOD COUNT 11.2 K/UL (4.8-10.8)
[2017-08-20 08:30] VITALS: BP 99/57
[2017-08-20] MEDS: Citalopram Hydrobromide 10mg Tab ORAL SCH (09:45)
[2017-08-20] MEDS: Vancomycin 1.5 GM/D5W 250ML IVPB SCH (10:25)
[2017-08-20 12:01] VITALS: BP 114/65
--- NOTE | 2017-08-20 14:38 | Cardiology Report ---
APPROVED REPORT EKG Measurement Heart [id number] Sinus tachycardia Otherwise normal ECG
[2017-08-20 16:36] VITALS: BP 106/65
[2017-08-20] MEDS: Augmentin 875mg Tab ORAL SCH (17:00)
--- NOTE | 2017-08-20 18:43 | Geriatric Progress Note ---
Assessment/Plan Problems: (1) Semantic dementia with behavioral disturbance (2) Delirium due to another medical condition, acute, mixed level of activity (3) Dyslipidemia (4) Prostatism (5) Lobar pneumonia (6) Hyponatremia (7) Sepsis (8) Altered mental status Assessment/Plan Now on po antibiotics because of pulling out IV. Will monitor to see if patient exhibits any recurrent septic symptoms. If oral therapy appears to be adequate, patient can be d/c to [facility]. Reviewed by phone in detail with . D/c alternatives reviewed. Based on current status, now feels she would prefer that he return to [facility] if d/c occurs in the next few days. Discussed with: family, hospital staff Subjective Interval Events Patient sitting up in bed, alert, not in overt distress. Has been resistant to care at various times per staff, attempting to hit and scratch. Pulled out IV. Dr. Vela was called and converted to p.o. Levaquin and Augmentin. Apparently also resistant to CPT and respiratory treatment. Eating fairly well, had b.m. Subjective Limited responses because of underlying dementia. Denies pain. Geriatric Geriatric Last 24 Hour Vital Signs Date Time Temp Pulse Resp B/P (MAP) Pulse Ox O2 Delivery O2 Flow Rate FiO2 08/20/17 16:36 98.2 68 18 106/65 98 Room Air 08/20/17 15:37 75 18 97 Room Air 21 08/20/17 15:26 67 16 97 Room Air 08/20/17 12:01 98.5 70 18 114/65 96 Room Air 08/20/17 11:44 62 16 96 Room Air 08/20/17 08:30 97.4 78 18 99/57 97 Room Air 08/20/17 08:00 85 08/20/17 06:30 Room Air 08/20/17 06:30 78 18 Room Air 08/20/17 04:16 97.8 78 23 128/74 92 Room Air 78 08/20/17 04:00 72 08/20/17 00:07 97.2 69 20 128/63 82 Room Air 08/20/17 00:00 87 08/19/17 20:02 97.7 67 20 113/62 97 Room Air 08/19/17 20:00 71 08/19/17 19:46 81 18 95 Room Air 21 08/19/17 19:35 73 18 94 Room Air 21 Intake and Output 08/19/17 08/20/17 19:00 07:00 Intake Total 1460 ml Balance 1460 ml Intake Oral 960 ml IV Total 500 ml # Voids 3 4 # Bowel Movements 1 Laboratory Tests Test 08/20/17 07:00 White Blood Count 11.2 K/UL (4.8-10.8) H Red Blood Count 3.73 M/UL (4.70-6.10) L Hemoglobin 11.8 G/DL (14.2-18.0) L Hematocrit 34.9 % (42.0-52.0) L Mean Corpuscular Volume 94 FL (80-99) Mean Corpuscular Hemoglobin 31.7 PG (27.0-31.0) H Mean Corpuscular Hemoglobin Concent 33.9 G/DL (32.0-36.0) Red Cell Distribution Width 12.9 % (11.6-14.8) Platelet Count 414 K/UL (150-450) Mean Platelet Volume 6.4 FL (6.5-10.1) L Neutrophils (%) (Auto) 77.1 % (45.0-75.0) H Lymphocytes (%) (Auto) 10.3 % (20.0-45.0) L Monocytes (%) (Auto) 8.9 % (1.0-10.0) Eosinophils (%) (Auto) 2.3 % (0.0-3.0) Basophils (%) (Auto) 1.4 % (0.0-2.0) Sodium Level 141 MMOL/L (136-145) Potassium Level 3.6 MMOL/L (3.5-5.1) Chloride Level 106 MMOL/L (98-107) Carbon Dioxide Level 28 MMOL/L (21-32) Anion Gap 7 mmol/L (5-15) Blood Urea Nitrogen 7 mg/dL (7-18) Creatinine 1.0 MG/DL (0.55-1.30) Estimat Glomerular Filtration Rate mL/min (>60) Glucose Level 94 MG/DL (74-106) Calcium Level 8.8 MG/DL (8.5-10.1) Current Medications Medications (Trade) Dose Ordered Sig/Enoc Route PRN Reason Start Time Stop Time Status Last Admin Dose Admin Acetaminophen (Tylenol) 650 mg Q6H PRN ORAL Mild Pain/Temp > 100.5 08/20/17 11:30 09/15/17 11:29 Acetylcysteine (Mucomyst) 200 mg QIDRT [facility] 08/20/17 12:00 09/17/17 11:59 08/20/17 15:26 Albuterol/ Ipratropium (Albuterol/ Ipratropium) 3 ml QIDRT [facility] 08/20/17 15:00 08/21/17 06:59 08/20/17 15:25 Amoxicillin/ Clavulanate Potassium (Augmentin) 875 mg EVERY 12 HOURS ORAL 08/20/17 16:00 08/27/17 15:59 08/20/17 17:00 Citalopram Hydrobromide (celeXA) 20 mg DAILY ORAL 08/21/17 09:00 09/15/17 08:59 Levofloxacin (Levaquin) 750 mg Q24H ORAL 08/20/17 15:00 08/27/17 14:59 08/20/17 15:21 Levothyroxine Sodium (Synthroid) 50 mcg DAILY@0630 ORAL 08/21/17 06:30 09/15/17 06:29 Ramelteon (Rozerem) 8 mg QHS ORAL 08/20/17 21:00 09/15/17 20:59 Risperidone (RisperDAL) 0.25 mg Q12H PRN ORAL Agitation 08/20/17 12:00 09/16/17 11:59 Risperidone (RisperDAL) 0.25 mg Q12HR ORAL 08/20/17 21:00 09/15/17 08:59 Tamsulosin HCl (Flomax) 0.4 mg BEDTIME ORAL 08/20/17 21:00 09/15/17 20:59 Height (Feet): 6 Height (Inches): 0.00 Weight (Pounds): 195 General Appearance: no apparent distress, alert Eyes: bilateral anicteric ENT: normal voice Neck: full range of motion, no mass Respiratory: other - ? still some egophony over anterior R upper field. Cardiovascular: regular rate, rhythm Gastrointestinal: normal bowel sounds, non tender, soft, no mass, no organomegaly Musculoskeletal: no calf tenderness Edema: no edema noted Generalized Neurologic: no new focality MARRY CASH Aug 20, 2017 18:43
--- NOTE | 2017-08-20 18:55 | Cardiology Progress Note ---
Assessment/Plan Assessment/Plan 1. Wide complex tachycardia, nonsustained. 2. Dementia. 3. Probable pneumonia. 4. Leukocytosis 5. electolyte abn k low trop neg pro bnp min elevated echo shows normal lv systolic function ekg no st t wave abn looks comforatble wbc is better Subjective ROS Limited/Unobtainable: Yes Subjective sitter at bedside agitated removed iv replaced Objective Last 24 Hour Vital Signs Date Time Temp Pulse Resp B/P (MAP) Pulse Ox O2 Delivery O2 Flow Rate FiO2 08/20/17 16:36 98.2 68 18 106/65 98 Room Air 08/20/17 15:37 75 18 97 Room Air 21 08/20/17 15:26 67 16 97 Room Air 08/20/17 12:01 98.5 70 18 114/65 96 Room Air 08/20/17 11:44 62 16 96 Room Air 08/20/17 08:30 97.4 78 18 99/57 97 Room Air 08/20/17 08:00 85 08/20/17 06:30 Room Air 08/20/17 06:30 78 18 Room Air 08/20/17 04:16 97.8 78 23 128/74 92 Room Air 78 08/20/17 04:00 72 08/20/17 00:07 97.2 69 20 128/63 82 Room Air 08/20/17 00:00 87 08/19/17 20:02 97.7 67 20 113/62 97 Room Air 08/19/17 20:00 71 08/19/17 19:46 81 18 95 Room Air 21 08/19/17 19:35 73 18 94 Room Air 21 General Appearance: no apparent distress, alert, other - sitting up in chair awake and responsive drinkign water Intake and Output 08/19/17 08/20/17 19:00 07:00 Intake Total 1460 ml Balance 1460 ml Intake Oral 960 ml IV Total 500 ml # Voids 3 4 # Bowel Movements 1 Laboratory Tests Test 08/20/17 07:00 White Blood Count 11.2 K/UL (4.8-10.8) H Red Blood Count 3.73 M/UL (4.70-6.10) L Hemoglobin 11.8 G/DL (14.2-18.0) L Hematocrit 34.9 % (42.0-52.0) L Mean Corpuscular Volume 94 FL (80-99) Mean Corpuscular Hemoglobin 31.7 PG (27.0-31.0) H Mean Corpuscular Hemoglobin Concent 33.9 G/DL (32.0-36.0) Red Cell Distribution Width 12.9 % (11.6-14.8) Platelet Count 414 K/UL (150-450) Mean Platelet Volume 6.4 FL (6.5-10.1) L Neutrophils (%) (Auto) 77.1 % (45.0-75.0) H Lymphocytes (%) (Auto) 10.3 % (20.0-45.0) L Monocytes (%) (Auto) 8.9 % (1.0-10.0) Eosinophils (%) (Auto) 2.3 % (0.0-3.0) Basophils (%) (Auto) 1.4 % (0.0-2.0) Sodium Level 141 MMOL/L (136-145) Potassium Level 3.6 MMOL/L (3.5-5.1) Chloride Level 106 MMOL/L (98-107) Carbon Dioxide Level 28 MMOL/L (21-32) Anion Gap 7 mmol/L (5-15) Blood Urea Nitrogen 7 mg/dL (7-18) Creatinine 1.0 MG/DL (0.55-1.30) Estimat Glomerular Filtration Rate mL/min (>60) Glucose Level 94 MG/DL (74-106) Calcium Level 8.8 MG/DL (8.5-10.1) URSZULA SMART Aug 20, 2017 18:55
[2017-08-20 20:00] VITALS: BP 118/73
[2017-08-20] MEDS: Ramelteon 8mg tab (Approved for Delirium use only) ORAL SCH (20:38)
[2017-08-20] MEDS: Tamsulosin 0.4mg cap ORAL SCH (20:38)
[2017-08-20] MEDS ORDERED: Vancomycin 1.5gm/D5W 250ml 250 ML IVPB SCH (22:00)
[2017-08-21] VITALS: BP 109/63
[2017-08-21] MEDS: Augmentin 875mg Tab ORAL SCH ×3 (00:05→21:53)
[2017-08-21 04:00] VITALS: BP 111/67
[2017-08-21 07:59] LABS: BASOPHILS % (AUTO) 1.1 % (0.0-2.0); EOSINOPHILS % (AUTO) 2.1 % (0.0-3.0); HEMATOCRIT 35.6 % (42.0-52.0); HEMOGLOBIN 11.7 G/DL (14.2-18.0); LYMPHOCYTES % (AUTO) 13.3 % (20.0-45.0); MEAN CORPUSCULAR VOLUME 95 FL (80-99); MONOCYTES % (AUTO) 8.2 % (1.0-10.0); NEUTROPHILS % (AUTO) 75.2 % (45.0-75.0); PLATELET COUNT 432 K/UL (150-450); RED BLOOD COUNT 3.76 M/UL (4.70-6.10); RED CELL DISTRIBUTION WIDTH 12.9 % (11.6-14.8); WHITE BLOOD COUNT 9.4 K/UL (4.8-10.8)
[2017-08-21 08:00] VITALS: BP 125/73
[2017-08-21 08:42] LABS: ANION GAP 10 mmol/L (5-15); BLOOD UREA NITROGEN 7 mg/dL (7-18); CALCIUM 9.2 MG/DL (8.5-10.1); CARBON DIOXIDE 27 MMOL/L (21-32); CHLORIDE 102 MMOL/L (98-107); CREATININE 0.9 MG/DL (0.55-1.30); POTASSIUM 3.6 MMOL/L (3.5-5.1); SODIUM 139 MMOL/L (136-145)
[2017-08-21] MEDS: Citalopram Hydrobromide 10mg Tab ORAL SCH (09:24)
[2017-08-21 12:00] VITALS: BP 120/72
--- NOTE | 2017-08-21 12:23 | Diagnostic Imaging Report ---
Indication: Dyspnea Technique: XRAY Chest 1v Comparison: 08/18/2017 Findings: Heart size and mediastinal contours are stable. Persistent opacity in the right upper lobe with slight improved aeration compared to the prior exam. Persistent small right pleural effusion and right basilar atelectasis. No pneumothorax. Left lung is essentially clear. Unchanged 1.7 cm rounded calcification in the region of the right axilla of uncertain etiology or clinical significance. Impression: Slight improved aeration of the right upper lung pneumonia compared to exam 2 day prior. Persistent small right pleural effusion and right basilar atelectasis/consolidation. Radiographic follow-up to resolution recommended.
[2017-08-21] MEDS ORDERED: LEVAQUIN250 M1 ORAL (15:29)
[2017-08-21] MEDS ORDERED: SYNTHROID50 MCG ORAL (15:29)
[2017-08-21] MEDS ORDERED: FLOMAX0.4 MG ORAL (15:29)
[2017-08-21] MEDS ORDERED: CELEXA20 MG ORAL (15:29)
[2017-08-21] MEDS ORDERED: AMOX TR-K CLV1 EAC2 ORAL (15:29)
[2017-08-21] MEDS ORDERED: ROZEREM8 MG ORAL (15:29)
[2017-08-21] MEDS ORDERED: ACETYLCYST100 MG/1 M HHN (15:29)
[2017-08-21] MEDS ORDERED: DUONEB 0.5-3(2.53 ML HHN (15:57)
[2017-08-21] MEDS ORDERED: RISPERDAL1 MG ORAL (15:57)
[2017-08-21] MEDS ORDERED: RISPERDAL0.25 MG ORAL (15:57)
[2017-08-21 16:00] VITALS: BP 140/74
--- NOTE | 2017-08-21 16:07 | Geriatric Progress Note ---
Assessment/Plan Problems: (1) Semantic dementia with behavioral disturbance (2) Delirium due to another medical condition, acute, mixed level of activity (3) Dyslipidemia (4) Prostatism (5) Lobar pneumonia (6) Hyponatremia (7) Sepsis (8) Altered mental status Assessment/Plan Continues to improve on current tx. Now appears stable to d/c to [facility]. Arrangements made for d/c with meds from [facility] and [facility] f/u. Dictated #[id number] Discussed with: family, hospital staff, [facility] staff Subjective Interval Events Patient alert, denies c/o. Extends hand and shakes. Speech very limited. Staff reports no agitation, sitting quietly in bed. Subjective Limited responses because of underlying dementia. Denies pain. Geriatric Geriatric Last 24 Hour Vital Signs Date Time Temp Pulse Resp B/P (MAP) Pulse Ox O2 Delivery O2 Flow Rate FiO2 08/21/17 15:26 76 20 98 Room Air 21 08/21/17 15:16 71 18 95 Room Air 21 08/21/17 12:00 Room Air 08/21/17 12:00 97.7 70 20 120/72 98 08/21/17 11:31 72 18 98 Room Air 21 08/21/17 11:21 70 18 96 Room Air 21 08/21/17 08:00 Room Air 08/21/17 08:00 98.2 82 21 125/73 96 08/21/17 07:26 78 18 Room Air 21 08/21/17 07:26 78 18 98 Room Air 21 08/21/17 07:15 74 18 96 Room Air 21 08/21/17 04:00 97.5 79 18 111/67 97 Room Air 08/21/17 00:00 98.0 77 18 109/63 99 Room Air 08/20/17 20:10 Room Air 08/20/17 20:10 Room Air 08/20/17 20:00 98.9 86 18 118/73 Room Air 08/20/17 16:36 98.2 68 18 106/65 98 Room Air Intake and Output 08/20/17 08/21/17 19:00 07:00 Intake Total 1320 ml 1600 ml Balance 1320 ml 1600 ml Intake Oral 1320 ml 1600 ml # Voids 4 8 # Bowel Movements 1 Laboratory Tests Test 08/21/17 05:20 White Blood Count 9.4 K/UL (4.8-10.8) Red Blood Count 3.76 M/UL (4.70-6.10) L Hemoglobin 11.7 G/DL (14.2-18.0) L Hematocrit 35.6 % (42.0-52.0) L Mean Corpuscular Volume 95 FL (80-99) Mean Corpuscular Hemoglobin 30.9 PG (27.0-31.0) Mean Corpuscular Hemoglobin Concent 32.7 G/DL (32.0-36.0) Red Cell Distribution Width 12.9 % (11.6-14.8) Platelet Count 432 K/UL (150-450) Mean Platelet Volume 6.3 FL (6.5-10.1) L Neutrophils (%) (Auto) 75.2 % (45.0-75.0) H Lymphocytes (%) (Auto) 13.3 % (20.0-45.0) L Monocytes (%) (Auto) 8.2 % (1.0-10.0) Eosinophils (%) (Auto) 2.1 % (0.0-3.0) Basophils (%) (Auto) 1.1 % (0.0-2.0) Sodium Level 139 MMOL/L (136-145) Potassium Level 3.6 MMOL/L (3.5-5.1) Chloride Level 102 MMOL/L (98-107) Carbon Dioxide Level 27 MMOL/L (21-32) Anion Gap 10 mmol/L (5-15) Blood Urea Nitrogen 7 mg/dL (7-18) Creatinine 0.9 MG/DL (0.55-1.30) Estimat Glomerular Filtration Rate mL/min (>60) Glucose Level 69 MG/DL (74-106) L Calcium Level 9.2 MG/DL (8.5-10.1) Current Medications Medications (Trade) Dose Ordered Sig/Enoc Route PRN Reason Start Time Stop Time Status Last Admin Dose Admin Acetaminophen (Tylenol) 650 mg Q6H PRN ORAL Mild Pain/Temp > 100.5 08/20/17 11:30 09/15/17 11:29 Acetylcysteine (Mucomyst) 200 mg QIDRT [facility] 08/20/17 12:00 09/17/17 11:59 08/21/17 15:16 Albuterol/ Ipratropium (Albuterol/ Ipratropium) 3 ml BIDRT [facility] 08/21/17 22:00 08/26/17 21:59 Amoxicillin/ Clavulanate Potassium (Augmentin) 875 mg EVERY 12 HOURS ORAL 08/20/17 16:00 08/27/17 15:59 08/21/17 09:23 Citalopram Hydrobromide (celeXA) 20 mg DAILY ORAL 08/21/17 09:00 09/15/17 08:59 08/21/17 09:24 Levofloxacin (Levaquin) 750 mg Q24H ORAL 08/20/17 15:00 08/27/17 14:59 08/21/17 15:27 Levothyroxine Sodium (Synthroid) 50 mcg DAILY@0630 ORAL 08/21/17 06:30 09/15/17 06:29 08/21/17 06:25 Ramelteon (Rozerem) 8 mg QHS ORAL 08/20/17 21:00 09/15/17 20:59 08/20/17 20:38 Risperidone (RisperDAL) 0.25 mg DAILY ORAL 08/22/17 09:00 09/15/17 08:59 Risperidone (RisperDAL) 0.5 mg QHS ORAL 08/21/17 21:00 09/20/17 20:59 Tamsulosin HCl (Flomax) 0.4 mg BEDTIME ORAL 08/20/17 21:00 09/15/17 20:59 08/20/17 20:38 Height (Feet): 6 Height (Inches): 0.00 Weight (Pounds): 195 General Appearance: alert, non-toxic Head: normocephalic, atraumatic Eyes: bilateral anicteric ENT: normal voice Neck: full range of motion, no mass Respiratory: lungs clear Cardiovascular: regular rate, rhythm Gastrointestinal: normal bowel sounds, non tender, no mass, no organomegaly, non-distended Musculoskeletal: no calf tenderness Edema: no edema noted Generalized Neurologic: no new focality MARRY CASH Aug 21, 2017 16:07
--- NOTE | 2017-08-21 16:41 | Infectious Diseases Prog Note ---
Assessment/Plan Assessment/Plan ASSESSMENT AND PLAN: 1. Pna - ? aspiration/HCAP, ? cap, sepsis, leukocytosis, fevers, sirs - clinically better, leukocytosis better, fevers better - augmentin plus levofloxacin for 7 days - chest x-ray improved - d/w Dr. Bernabe 2. The patient has history of dementia, Alzheimer's type. 3. The patient is anemic. 4. Hypothyroidism. 5. Dyslipidemia. 6. Prostatism. 7. Depression. 8. Some episodic agitation. 9. No known allergies. 10. Social history negative. 11. MAR was noted. 12. Case discussed with RN. 13. Family history is noncontributory. 14. Case discussed with Dr. Bernabe. 15. Skin care protocol. 16. Notes and records were noted. 17. Orders were entered. Subjective Constitutional: Denies: fever HEENT: Denies: congestion Respiratory: Denies: shortness of breath Cardiovascular: Denies: chest pain Gastrointestinal/Abdominal: Denies: nausea, vomiting, diarrhea Genitourinary: Reports: other - no santos Neurologic: Denies: headache Psychiatric: Reports: other - na Skin: Denies: rash Hematologic: Denies: bleeding Musculoskeletal: Denies: pain Allergies: Coded Allergies: No Known Allergies (Unverified , 10/20/16) Objective Vital Signs Last 24 Hour Vital Signs Date Time Temp Pulse Resp B/P (MAP) Pulse Ox O2 Delivery O2 Flow Rate FiO2 08/21/17 15:26 76 20 98 Room Air 08/21/17 15:16 71 18 95 Room Air 08/21/17 12:00 Room Air 08/21/17 12:00 97.7 70 20 120/72 98 08/21/17 11:31 72 18 98 Room Air 08/21/17 11:21 70 18 96 Room Air 08/21/17 08:00 Room Air 08/21/17 08:00 98.2 82 21 125/73 96 08/21/17 07:26 78 18 Room Air 08/21/17 07:26 78 18 98 Room Air 08/21/17 07:15 74 18 96 Room Air 08/21/17 04:00 97.5 79 18 111/67 97 Room Air 08/21/17 00:00 98.0 77 18 109/63 99 Room Air 08/20/17 20:10 Room Air 08/20/17 20:10 Room Air 08/20/17 20:00 98.9 86 18 118/73 Room Air 08/20/17 16:36 98.2 68 18 106/65 98 Room Air Height (Feet): 6 Height (Inches): 0.00 Weight (Pounds): 195 General Appearance: no acute distress HEENT: normocephalic, atraumatic, anicteric, mucous membranes moist Respiratory/Chest: lungs clear, normal breath sounds, no respiratory distress, no accessory muscle use Cardiovascular: normal rate, regular rhythm, no gallop/murmur, no JVD Abdomen: normal bowel sounds, soft, non tender, no organomegaly, non distended Genitourinary: other - no santos Extremities: no cyanosis Skin: no rash Neurologic/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 Heart size is stable. Bones are unremarkable. IMPRESSION: Right upper lobe pneumonia unchanged 08/21 - chest x-ray - Impression: Slight improved aeration of the right upper lung pneumonia compared to exam 2 day prior. Persistent small right pleural effusion and right basilar atelectasis/consolidation. Radiographic follow-up to resolution recommended. Microbiology Date/Time Source Procedure Growth Status 08/15/17 18:23 Blood Blood Culture - Final NO GROWTH AFTER 5 DAYS Complete 08/17/17 18:35 Nasal Nares Left Influenza Types A,B Antigen (PERRY) - Final Complete 08/15/17 19:17 Urine,Clean Catch Urine Culture - Final Mixed Gram Positive Organism Complete 08/15/17 19:17 Rectum VRE Culture - Final NO VANCOMYCIN RESISTANT ENTEROCOCCUS ... Complete Laboratory Tests Test 08/21/17 05:20 White Blood Count 9.4 K/UL (4.8-10.8) Red Blood Count 3.76 M/UL (4.70-6.10) L Hemoglobin 11.7 G/DL (14.2-18.0) L Hematocrit 35.6 % (42.0-52.0) L Mean Corpuscular Volume 95 FL (80-99) Mean Corpuscular Hemoglobin 30.9 PG (27.0-31.0) Mean Corpuscular Hemoglobin Concent 32.7 G/DL (32.0-36.0) Red Cell Distribution Width 12.9 % (11.6-14.8) Platelet Count 432 K/UL (150-450) Mean Platelet Volume 6.3 FL (6.5-10.1) L Neutrophils (%) (Auto) 75.2 % (45.0-75.0) H Lymphocytes (%) (Auto) 13.3 % (20.0-45.0) L Monocytes (%) (Auto) 8.2 % (1.0-10.0) Eosinophils (%) (Auto) 2.1 % (0.0-3.0) Basophils (%) (Auto) 1.1 % (0.0-2.0) Sodium Level 139 MMOL/L (136-145) Potassium Level 3.6 MMOL/L (3.5-5.1) Chloride Level 102 MMOL/L (98-107) Carbon Dioxide Level 27 MMOL/L (21-32) Anion Gap 10 mmol/L (5-15) Blood Urea Nitrogen 7 mg/dL (7-18) Creatinine 0.9 MG/DL (0.55-1.30) Estimat Glomerular Filtration Rate mL/min (>60) Glucose Level 69 MG/DL (74-106) L Calcium Level 9.2 MG/DL (8.5-10.1) Current Medications Medications (Trade) Dose Ordered Sig/Enoc Route PRN Reason Start Time Stop Time Status Last Admin Dose Admin Acetaminophen (Tylenol) 650 mg Q6H PRN ORAL Mild Pain/Temp > 100.5 08/20/17 11:30 09/15/17 11:29 Acetylcysteine (Mucomyst) 200 mg QIDRT [facility] 08/20/17 12:00 09/17/17 11:59 08/21/17 15:16 Albuterol/ Ipratropium (Albuterol/ Ipratropium) 3 ml BIDRT [facility] 08/21/17 22:00 08/26/17 21:59 Amoxicillin/ Clavulanate Potassium (Augmentin) 875 mg EVERY 12 HOURS ORAL 08/20/17 16:00 08/27/17 15:59 08/21/17 09:23 Citalopram Hydrobromide (celeXA) 20 mg DAILY ORAL 08/21/17 09:00 09/15/17 08:59 08/21/17 09:24 Levofloxacin (Levaquin) 750 mg Q24H ORAL 08/20/17 15:00 08/27/17 14:59 08/21/17 15:27 Levothyroxine Sodium (Synthroid) 50 mcg DAILY@0630 ORAL 08/21/17 06:30 09/15/17 06:29 08/21/17 06:25 Ramelteon (Rozerem) 8 mg QHS ORAL 08/20/17 21:00 09/15/17 20:59 08/20/17 20:38 Risperidone (RisperDAL) 0.25 mg DAILY ORAL 08/22/17 09:00 09/15/17 08:59 Risperidone (RisperDAL) 0.5 mg QHS ORAL 08/21/17 21:00 09/20/17 20:59 Tamsulosin HCl (Flomax) 0.4 mg BEDTIME ORAL 08/20/17 21:00 09/15/17 20:59 08/20/17 20:38 PRASANTH SCOTT Aug 21, 2017 16:41
[2017-08-21 20:00] VITALS: BP 112/67
[2017-08-21] MEDS ORDERED: Tubing IV Secondary IV ONE (20:01)
[2017-08-21] MEDS: Albuterol/Ipratropium 3ml neb HHN SCH (20:31)
[2017-08-21] MEDS: Tamsulosin 0.4mg cap ORAL SCH (21:53)
[2017-08-21] MEDS: Ramelteon 8mg tab (Approved for Delirium use only) ORAL SCH (21:54)
[2017-08-22] VITALS: BP 107/90
--- NOTE | 2017-08-22 03:30 | Discharge Summary ---
DATE OF ADMISSION: 08/15/2017 DATE OF DISCHARGE: 08/22/2017 DISCHARGE DIAGNOSES: 1. Lobar pneumonia, consider aspiration. 2. Sepsis secondary to above. 3. Toxic metabolic encephalopathy associated with acute illness. 4. Advanced semantic dementia. 5. History of depression. 6. History of obsessive compulsive disorder. 7. Dyslipidemia. 8. Prostatism. 9. Recent wandering behavior and weight loss secondary to advanced dementia. 10. Hypothyroidism. 11. History of allergic rhinitis. HISTORY OF PRESENT ILLNESS: The patient is a 71-year-old gentleman who developed a fever to 103, lethargy and weakness at his [facility]. Details of history and physical examination are per the dictation of 08/16/2017. HOSPITAL COURSE: The patient was admitted and initially placed on cefepime and vancomycin for what appeared to be a lobar pneumonia. He was also hydrated and over the several days, he improved somewhat in terms of his mentation but his white count continued to be quite elevated. As a result, an Infectious Disease consultation was requested from Dr. Osvaldo Vela and his medication regimen was changed to Zosyn and vancomycin. With this, the patient improved rapidly and became more alert although his advanced dementia prevented communicating effectively. Initially, there was some agitation and resistance to therapy although toward the end the patient became more cooperative. As the patient became more alert, he was resistive to intravenous placement and pulled out his intravenous line two days before discharge. As a result, the patient was switched by Dr. Vela to Augmentin and Levaquin orally and he tolerated this well with continuing improvement in his pneumonitis. Therefore, the patient is being discharged to his [facility] facility to complete his oral antibiotic course. At the time of discharge, the patient's medications will include Augmentin 875/125 q.12 hours for 7 days, levofloxacin 750 mg daily for 7 days. He will receive DuoNeb unit dose and Mucomyst 200 mg unit dose b.i.d. for 7 days, Celexa 20 mg daily, levothyroxine 50 mcg daily, Rozerem 8 mg at bedtime, Risperdal 0.25 mg daily and Risperdal 0.5 mg at bedtime, and Flomax 0.4 mg at bedtime. The patient's situation was discussed in detail with his and he will be followed up as an outpatient with home health care at the [facility] facility and subsequently in the office. Addendum: Discharge was postponed one day because the patient's oral antibiotics could not be delivered by the outpatient pharmacy in [place]. Vijay Bernabe M.D. DR: ALFRED JOB#: [id number] CC: SANDER
[2017-08-22 04:00] VITALS: BP 133/70
[2017-08-22 08:00] VITALS: BP 101/63
[2017-08-22] MEDS: Citalopram Hydrobromide 10mg Tab ORAL SCH (08:50)
[2017-08-22] MEDS: Augmentin 875mg Tab ORAL SCH (08:54)
[2017-08-22] MEDS: Albuterol/Ipratropium 3ml neb HHN SCH ×2 (10:00→19:53)
--- NOTE | 2017-08-22 11:57 | Geriatric Progress Note ---
Assessment/Plan Problems: (1) Semantic dementia with behavioral disturbance (2) Delirium due to another medical condition, acute, mixed level of activity (3) Dyslipidemia (4) Prostatism (5) Lobar pneumonia (6) Hyponatremia (7) Sepsis (8) Altered mental status Assessment/Plan Continues to improve on current tx. Now appears stable to d/c to [facility]. Arrangements made for d/c with meds from [facility] and [facility] f/u. Dictated #[id number] Subjective Interval Events Patient calm, ambulated with assistance. No overt c/o. Discharge delayed due to issues with availability of outpatient medications. Subjective Limited responses because of underlying dementia. Denies pain. Geriatric Geriatric Last 24 Hour Vital Signs Date Time Temp Pulse Resp B/P (MAP) Pulse Ox O2 Delivery O2 Flow Rate FiO2 08/22/17 10:44 Room Air 21 08/22/17 10:44 Room Air 21 08/22/17 07:20 74 20 98 Room Air 21 08/22/17 07:10 72 18 96 Room Air 21 08/22/17 04:00 97.7 74 20 133/70 97 Room Air 08/22/17 00:00 97.2 60 18 107/90 96 Room Air 08/21/17 20:48 77 20 98 Room Air 21 08/21/17 20:36 69 18 96 Room Air 21 08/21/17 20:00 97.5 68 18 112/67 95 Room Air 08/21/17 16:00 96.8 74 20 140/74 98 08/21/17 16:00 Room Air 08/21/17 15:26 76 20 98 Room Air 21 08/21/17 15:16 71 18 95 Room Air 21 08/21/17 12:00 Room Air 08/21/17 12:00 97.7 70 20 120/72 98 Intake and Output 08/21/17 08/22/17 19:00 07:00 Intake Total 240 ml 660 ml Balance 240 ml 660 ml Intake Oral 240 ml 660 ml # Voids 3 7 # Bowel Movements 1 Current Medications Medications (Trade) Dose Ordered Sig/Enoc Route PRN Reason Start Time Stop Time Status Last Admin Dose Admin Acetaminophen (Tylenol) 650 mg Q6H PRN ORAL Mild Pain/Temp > 100.5 08/20/17 11:30 09/15/17 11:29 Acetylcysteine (Mucomyst) 200 mg QIDRT [facility] 08/20/17 12:00 09/17/17 11:59 08/22/17 07:10 Albuterol/ Ipratropium (Albuterol/ Ipratropium) 3 ml BIDRT [facility] 08/21/17 22:00 08/26/17 21:59 08/21/17 20:31 Amoxicillin/ Clavulanate Potassium (Augmentin) 875 mg EVERY 12 HOURS ORAL 08/20/17 16:00 08/27/17 15:59 08/22/17 08:54 Citalopram Hydrobromide (celeXA) 20 mg DAILY ORAL 08/21/17 09:00 09/15/17 08:59 08/22/17 08:50 Levofloxacin (Levaquin) 750 mg Q24H ORAL 08/20/17 15:00 08/27/17 14:59 08/21/17 15:27 Levothyroxine Sodium (Synthroid) 50 mcg DAILY@0630 ORAL 08/21/17 06:30 09/15/17 06:29 08/22/17 05:58 Ramelteon (Rozerem) 8 mg QHS ORAL 08/20/17 21:00 09/15/17 20:59 08/21/17 21:54 Risperidone (RisperDAL) 0.25 mg DAILY ORAL 08/22/17 09:00 09/15/17 08:59 08/22/17 08:53 Risperidone (RisperDAL) 0.5 mg QHS ORAL 08/21/17 21:00 09/20/17 20:59 08/21/17 21:54 Tamsulosin HCl (Flomax) 0.4 mg BEDTIME ORAL 08/20/17 21:00 09/15/17 20:59 08/21/17 21:53 Height (Feet): 6 Height (Inches): 0.00 Weight (Pounds): 195 General Appearance: alert, non-toxic Head: normocephalic Eyes: bilateral anicteric ENT: normal voice Neck: full range of motion, no mass Respiratory: lungs clear Cardiovascular: regular rate, rhythm Gastrointestinal: normal bowel sounds, non tender, soft, no mass, no organomegaly Musculoskeletal: no calf tenderness Edema: no edema noted Generalized Neurologic: no new focality Neurologic: gait/balance - slowed and unsteady MARRY CASH Aug 22, 2017 11:57
[2017-08-22 12:00] VITALS: BP 129/56
[2017-08-22 15:46] VITALS: BP 112/83
[2017-08-22 20:00] VITALS: BP 110/71
== END 2017-08-22 21:45 | disposition home health service (06) | DRG 871 ==
LOC: EDBD 17:33 → EMR 19:30 → EDBEDREQ 20:49 → 2E 20:58 → 4W 08-20 10:54
DX: A41.9 Sepsis, unspecified organism (principal); J69.0 Pneumonitis due to inhalation of food and vomit; G92 Toxic encephalopathy; E87.1 Hypo-osmolality and hyponatremia; F02.81 Dementia in other diseases classified elsewhere, unspecified severity, with behavioral disturbance; F05 Delirium due to known physiological condition; G30.9 Alzheimer's disease, unspecified; E78.5 Hyperlipidemia, unspecified; N40.0 Benign prostatic hyperplasia without lower urinary tract symptoms; E03.9 Hypothyroidism, unspecified; F32.9 Major depressive disorder, single episode, unspecified; Z91.83 Wandering in diseases classified elsewhere; D64.9 Anemia, unspecified; R45.1 Restlessness and agitation; R63.4 Abnormal weight loss; Z66 Do not resuscitate
CPT/HCPCS: 36415; 71045; 80048; 80053; 80202; 81003; 82248; 82550; 83605; 83735; 83880; 84443; 84484; 85007; 85025; 85651; 86710; 87040; 87081; 87086; 93005; 93306; 94640; 94664; 99291; J7620; J8499